=== PATIENT | male | born 1965 | race Caucasian/White ===

== ENCOUNTER 2023-05-04 12:05 | Inpatient (IN) ==
--- NOTE | 2023-05-04 12:52 | Emergency Department Note ---
History of Present Illness General Chief complaint: Leg Injury/Pain Stated complaint: LOWER LEFT LEG PAIN, REF BY DOC Time Seen by Provider: 05/04/23 12:28 Source: patient, RN notes reviewed and old records reviewed (I have reviewed x- ray results and notes from a [facility] urgent care visits on 04-05-2023) Mode of arrival: ambulatory Limitations: no limitations History of Present Illness Maximum Pain Intensity: 7 This patient was sent over from [facility] due to weight loss. He hurt his leg in the fall and said it was not too bad until March increasing pain he was seen at [facility] on April 05 had x-rays of his pelvis hip back and chest that were negative. He did recently receive referrals to cardiology GI and orthopedics he has yet to be able to get in. He has been losing weight since February he went from 1 50-1 39-1 34. He also estimates he was heavier than that in the fall and says he usually runs about 165 he thinks. He has not been taking much for pain except for Tylenol maximum 2 every 8-10 hours. He says everything he eats he throws up the last 1 to 2 weeks was able hold on chicken broth at 1 point. No abdominal pain no chest pain or shortness of breath no fever no blood or melena stool. He feels like he does have some incontinence of his urine for the last week or so at night. He was seen at [facility] Home Medications Medication Instructions Recorded Confirmed Type acetaminophen 500 mg tablet 500 mg PO Q6H PRN Pain (Scale 05/04/23 05/04/23 History Score 1-3) Allergies Allergy/AdvReac Type Severity Reaction Status Date / Time No Known Allergies Allergy Unverified 05/04/23 14:00 Past Med/Surg History Medical History (Updated 05/04/23 @ 16:18 by Mark Chopar MD) Lumbar back pain Cachectic Unintentional weight loss BHAVIN (acute kidney injury) Metabolic acidosis No pertinent past medical history Surgical History (Updated 05/04/23 @ 14:49 by HUY Doan) No pertinent past surgical history Social History (Updated 05/04/23 @ 14:49 by HUY Doan) Smoking Status: Never smoker Second Hand Exposure: No; Do You Dip or Chew Tobacco: No; Hx Alcohol Use: No Hx Substance Use: No Feels Safe at Home: Yes Immunizations: Past medical history denies significant past medical problems. Specifically denies diabetes, back pain, blood thinner use Social history he does not smoke drink or use drugs or marijuana Review of Systems A total of 10 systems reviewed and were otherwise negative Physical Exam Vital Signs Vital Signs - 24 hr 05/04/23 12:14 Temperature 35.3 C L Temperature Source Temporal Artery Scan Pulse Rate 119 H Respiratory Rate 16 Respiratory Effort / Characteristics Non-Labored Spontaneous Respiratory Depth Normal Blood Pressure 120/71 Blood Pressure Mean 87 Pulse Oximetry 99 Oxygen Delivery Method Room Air Sepsis New/Unexplained Change in Mental Status No Sepsis Action Taken by Nursing No Action Required General: Well developed well nourished somewhat cachectic middle-age male who in no acute distress, breathing comfortably on room air. Normal speech HEENT: Normal cephalic atraumatic. Pupils are equal round and reactive to light. Extraocular movements are intact. Oropharynx is pink with moist mucous membranes. No swelling of the mouth lips or tongue. Neck: Supple with a midline trachea. No meningeal signs or stiffness, no JVD or bruits. No Stridor. Chest: Clear to auscultation bilaterally. No wheezes or rhonchi. No increased work of breathing. Heart: He is tachycardic but has regular rate and rhythm to hear 2 out of 6 systolic murmur. Abdomen: Soft nontender, nondistended without rebound guarding or rigidity. Extremities: No cyanosis clubbing or edema. No calf tenderness or assymetry. No redness or warmth. Normal distal pulses no calf tenderness or asymmetry. Spine/Back. Non tender to palpation. No CVA tenderness Skin: Good turgor without rashes. Neurologic exam: Cranial nerves two through 12 are intact. Motor and sensation are intact and symmetrical throughout. He walks with a cane. Course Administered Medications Sodium Bicarbonate 150 meq/ (Dextrose) 1,150 mls @ 290 mls/hr IV .[id number] STA Stop: 05/04/23 17:37 Last Admin: 05/04/23 14:39 Dose: 290 mls/hr Documented By: OLEGARIO Dextrose/Sodium Chloride (D5w And 1/2nss) 1,000 mls @ 80 mls/hr IV .[id number] ALAN Stop: 05/05/23 16:29 Last Admin: 05/04/23 16:11 Dose: 80 mls/hr Documented By: OLEGARIO Sodium Zirconium Cyclosilicate (Sodium Zirconium Cyclosilicate 10 Gm Packet) 10 gm PO TID ALAN Stop: 05/06/23 09:01 Last Admin: 05/04/23 15:00 Dose: 10 gm Documented By: OLEGARIO Discontinued Medications Calcium Gluconate (Calcium Gluconate 1000 Mg/60 Ml Nss) Confirm Administered Dose 1,000 mg IV .STK-MED ONE Stop: 05/04/23 14:04 Last Admin: 05/04/23 14:12 Dose: Not Given Documented By: OLEGARIO Sodium Chloride (Nss) 1,000 mls @ 999 mls/hr IV .Q1H1M ONE Stop: 05/04/23 13:43 Last Infusion: 05/04/23 14:05 Dose: Infused Documented By: Admin: 05/04/23 13:04 Dose: 999 mls/hr Documented By: LIDIA Sodium Chloride (Nss) 1,000 mls @ 999 mls/hr IV .Q1H1M ONE Stop: 05/04/23 13:45 Last Admin: 05/04/23 14:00 Dose: 999 mls/hr Documented By: OLEGARIO Calcium Gluconate 1,000 mg/ (Sodium Chloride) 60 mls @ 240 mls/hr IV NOW ONE Stop: 05/04/23 13:49 Last Infusion: 05/04/23 14:28 Dose: Infused Documented By: Admin: 05/04/23 14:13 Dose: 240 mls/hr Documented By: OLEGARIO Miscellaneous (Stat Iv/Im) 1 each N/A NOW STA Stop: 05/04/23 13:36 Last Admin: 05/04/23 16:04 Dose: Not Given Documented By: OLEGARIO Critical Care Time Critical Care Time: Yes Total Critical Care Time: 55 Due to the patient's significantly abnormal labs with hyperkalemia as well as renal failure, need for multiple consultations multiple IV medications to treat emergent hyperkalemia and tachycardia, frequent reassessment and evaluation,I have personally spent greater than 55 minutes of critical care time in the direct management of this patient. This includes bedside care, interpretation of diagnostic studies, and testing, discussion with consultants, patient, and family members, and other required patient management activities. This 55 minutes is in excess of all separately billable procedures. Medical Decision Making Differential Diagnosis Orthopedic disease, dehydration, intra-abdominal process, malignancy, endocrinologic process, infection, anemia, DVT/PE Medical Records Attestation: I reviewed the patient's medical records. Home Medications Current Medication List: was personally reviewed by me Laboratory Data Attestation: I reviewed the patient's lab results. 05/04/23 12:25 05/04/23 12:25 Lab Results 05/04/23 05/04/23 05/04/23 Range/Units 12:25 12:27 12:40 WBC 17.76 H (4.8-10.8) K/ul RBC 3.93 L (4.70-6.10) M/uL Hgb 11.5 L (14.0-18.0) g/dl Hct 36.6 L (42.0-52.0) % MCV 93.1 (80.0-100.0) fL MCH 29.3 (25.0-34.0) pg MCHC 31.4 L (32.0-36.0) g/dL RDW Std Deviation 50.4 H (36.4-46.3) fL RDW Coeff of [place] 14.7 H (11.5-14.5) % Plt Count 528 H (130-400) K/uL MPV 8.8 L (9.4-12.4) fL Immature Gran % (Auto) 1.2 % Neut % (Auto) 87.8 % Lymph % (Auto) 4.5 % [place] % (Auto) 6.0 % Eos % (Auto) 0.1 % Baso % (Auto) 0.4 % Neut # (Auto) 15.59 H (1.40-6.50) K/uL Lymph # (Auto) 0.80 L (1.20-3.40) K/uL [place] # (Auto) 1.07 H (0.11-0.59) K/uL Eos # (Auto) 0.02 (0.00-0.50) K/uL Baso # (Auto) 0.07 (0.00-0.20) K/uL Immature Gran # (Auto) 0.21 H (0.01-0.20) K/uL D-Dimer 03812 H* (0-500) ug/L FEU VBG pH (7.36-7.41) VBG pCO2 (38-50) mmHg VBG pO2 mmHg VBG HCO3 mmol/L VBG O2 Saturation % VBG Base Excess mEq/L Sodium 134 L (136-145) mmol/L Potassium 6.9 H* (3.5-5.1) mmol/L Chloride 104 (98-107) mmol/L Carbon Dioxide 13 L (21-32) mmol/L Anion Gap 17 H (3-11) BUN 100 H (6-23) mg/dl Creatinine 7.03 H* (0.6-1.4) mg/dl Est Cr Clr Drug Dosing 8.0 ml/min Est GFR ( Amer) 9.0 ml/min Est GFR (Non-Af Amer) 7.8 ml/min BUN/Creatinine Ratio 14.2 (10-20) Glucose 111 H (70-99(Fasting)) mg/dl Estimat Average Glucose mg/dl Hemoglobin A1c (4.5-5.6) % Lactate (0.4-2.0) mmol/L Uric Acid 11.6 H (2.6-7.2) mg/dl Calcium 9.4 (8.6-10.3) mg/dl Phosphorus 4.3 (2.5-4.9) mg/dl Total Bilirubin 0.4 (0.2-1.0) mg/dl AST 12 L (13-39) U/L ALT 8 (7-52) U/L Alkaline Phosphatase 770 H (34-104) U/L Troponin I High Sens 27.2 H (0-20) pg/ml Total Protein 7.9 (6.0-8.3) gm/dl Albumin 4.1 (3.4-5.0) gm/dl Globulin 3.8 (2.5-4.0) gm/dl Albumin/Globulin Ratio 1.1 (0.9-2) Lipase 52 (11-82) U/L TSH 3.503 (0.300-4.500) uIu/ml Urine Color Urine Appearance (Clear) Urine pH (4.5-7.5) Ur Specific [place] (1.000-1.030) Urine Protein (Negative) Urine Glucose (UA) (Negative) Urine Ketones (Negative) Urine Blood (Negative) Urine Nitrite (Negative) Urine Bilirubin (Negative) Urine Urobilinogen (Negative) Ur Leukocyte Esterase (Negative) Urine WBC (Auto) (0-5) /hpf Urine RBC (Auto) (0-4) /hpf U Hyaline Cast (Auto) (0-5) /lpf U Epithel Cells (Auto) (0-5) /lpf Urine Bacteria (Auto) (Negative) Urine Osmolality (500-800) mOsm/kg 05/04/23 05/04/23 05/04/23 Range/Units 12:49 14:17 14:41 WBC (4.8-10.8) K/ul RBC (4.70-6.10) M/uL Hgb (14.0-18.0) g/dl Hct (42.0-52.0) % MCV (80.0-100.0) fL MCH (25.0-34.0) pg MCHC (32.0-36.0) g/dL RDW Std Deviation (36.4-46.3) fL RDW Coeff of [place] (11.5-14.5) % Plt Count (130-400) K/uL MPV (9.4-12.4) fL Immature Gran % (Auto) % Neut % (Auto) % Lymph % (Auto) % [place] % (Auto) % Eos % (Auto) % Baso % (Auto) % Neut # (Auto) (1.40-6.50) K/uL Lymph # (Auto) (1.20-3.40) K/uL [place] # (Auto) (0.11-0.59) K/uL Eos # (Auto) (0.00-0.50) K/uL Baso # (Auto) (0.00-0.20) K/uL Immature Gran # (Auto) (0.01-0.20) K/uL D-Dimer (0-500) ug/L FEU VBG pH (7.36-7.41) VBG pCO2 (38-50) mmHg VBG pO2 mmHg VBG HCO3 mmol/L VBG O2 Saturation % VBG Base Excess mEq/L Sodium (136-145) mmol/L Potassium (3.5-5.1) mmol/L Chloride (98-107) mmol/L Carbon Dioxide (21-32) mmol/L Anion Gap (3-11) BUN (6-23) mg/dl Creatinine (0.6-1.4) mg/dl Est Cr Clr Drug Dosing ml/min Est GFR ( Amer) ml/min Est GFR (Non-Af Amer) ml/min BUN/Creatinine Ratio (10-20) Glucose (70-99(Fasting)) mg/dl Estimat Average Glucose mg/dl Hemoglobin A1c (4.5-5.6) % Lactate (0.4-2.0) mmol/L Uric Acid (2.6-7.2) mg/dl Calcium (8.6-10.3) mg/dl Phosphorus (2.5-4.9) mg/dl Total Bilirubin (0.2-1.0) mg/dl AST (13-39) U/L ALT (7-52) U/L Alkaline Phosphatase (34-104) U/L Troponin I High Sens 33.8 H (0-20) pg/ml Total Protein (6.0-8.3) gm/dl Albumin (3.4-5.0) gm/dl Globulin (2.5-4.0) gm/dl Albumin/Globulin Ratio (0.9-2) Lipase (11-82) U/L TSH (0.300-4.500) uIu/ml Urine Color Yellow Urine Appearance Clear (Clear) Urine pH 5.0 (4.5-7.5) Ur Specific [place] 1.016 (1.000-1.030) Urine Protein Negative (Negative) Urine Glucose (UA) Negative (Negative) Urine Ketones Trace H (Negative) Urine Blood 3+ H (Negative) Urine Nitrite Negative (Negative) Urine Bilirubin Negative (Negative) Urine Urobilinogen Negative (Negative) Ur Leukocyte Esterase Trace H (Negative) Urine WBC (Auto) 5-10 H (0-5) /hpf Urine RBC (Auto) 10-30 H (0-4) /hpf U Hyaline Cast (Auto) 0 (0-5) /lpf U Epithel Cells (Auto) 5-10 H (0-5) /lpf Urine Bacteria (Auto) Negative (Negative) Urine Osmolality 389 L (500-800) mOsm/kg 05/04/23 Range/Units 15:50 WBC (4.8-10.8) K/ul RBC (4.70-6.10) M/uL Hgb (14.0-18.0) g/dl Hct (42.0-52.0) % MCV (80.0-100.0) fL MCH (25.0-34.0) pg MCHC (32.0-36.0) g/dL RDW Std Deviation (36.4-46.3) fL RDW Coeff of [place] (11.5-14.5) % Plt Count (130-400) K/uL MPV (9.4-12.4) fL Immature Gran % (Auto) % Neut % (Auto) % Lymph % (Auto) % [place] % (Auto) % Eos % (Auto) % Baso % (Auto) % Neut # (Auto) (1.40-6.50) K/uL Lymph # (Auto) (1.20-3.40) K/uL [place] # (Auto) (0.11-0.59) K/uL Eos # (Auto) (0.00-0.50) K/uL Baso # (Auto) (0.00-0.20) K/uL Immature Gran # (Auto) (0.01-0.20) K/uL D-Dimer (0-500) ug/L FEU VBG pH 7.29 L (7.36-7.41) VBG pCO2 27 L (38-50) mmHg VBG pO2 37 mmHg VBG HCO3 13 mmol/L VBG O2 Saturation 68.2 % VBG Base Excess -12.3 mEq/L Sodium (136-145) mmol/L Potassium (3.5-5.1) mmol/L Chloride (98-107) mmol/L Carbon Dioxide (21-32) mmol/L Anion Gap (3-11) BUN (6-23) mg/dl Creatinine (0.6-1.4) mg/dl Est Cr Clr Drug Dosing ml/min Est GFR ( Amer) ml/min Est GFR (Non-Af Amer) ml/min BUN/Creatinine Ratio (10-20) Glucose (70-99(Fasting)) mg/dl Estimat Average Glucose 117 mg/dl Hemoglobin A1c 5.7 H (4.5-5.6) % Lactate 0.8 (0.4-2.0) mmol/L Uric Acid (2.6-7.2) mg/dl Calcium (8.6-10.3) mg/dl Phosphorus (2.5-4.9) mg/dl Total Bilirubin (0.2-1.0) mg/dl AST (13-39) U/L ALT (7-52) U/L Alkaline Phosphatase (34-104) U/L Troponin I High Sens (0-20) pg/ml Total Protein (6.0-8.3) gm/dl Albumin (3.4-5.0) gm/dl Globulin (2.5-4.0) gm/dl Albumin/Globulin Ratio (0.9-2) Lipase (11-82) U/L TSH (0.300-4.500) uIu/ml Urine Color Urine Appearance (Clear) Urine pH (4.5-7.5) Ur Specific [place] (1.000-1.030) Urine Protein (Negative) Urine Glucose (UA) (Negative) Urine Ketones (Negative) Urine Blood (Negative) Urine Nitrite (Negative) Urine Bilirubin (Negative) Urine Urobilinogen (Negative) Ur Leukocyte Esterase (Negative) Urine WBC (Auto) (0-5) /hpf Urine RBC (Auto) (0-4) /hpf U Hyaline Cast (Auto) (0-5) /lpf U Epithel Cells (Auto) (0-5) /lpf Urine Bacteria (Auto) (Negative) Urine Osmolality (500-800) mOsm/kg Imaging Data Attestation: I personally reviewed and interpreted this imaging study as follows: My Impression: Chest x-raythat acute infiltrate, failure, pneumothorax seen CT abdomen and pelvis. There is a large dilated bladder and there may be some mild hydro nephrosis Radiologist's Impression: Chest X-Ray 05/04/23 12:43 XR chest 1V portable CLINICAL HISTORY: Cough. COMPARISON STUDY: No previous studies for comparison. FINDINGS: Lung volumes are normal. Lungs are clear. There is no pneumothorax or pleural effusion. Moderate cardiomegaly. Mediastinal contours are normal. There is no evidence for pulmonary edema. IMPRESSION: No acute cardiopulmonary findings. Cardiomegaly. ACT 112: Negative or not required by law. Electronically signed by: Fred Silverio M.D. 05/04/2023 2:09 PM Abdomen/Pelvis CT 05/04/23 13:47 CT OF THE ABDOMEN AND PELVIS WITHOUT CONTRAST CLINICAL HISTORY: Weight loss. Renal failure. COMPARISON STUDY: None. TECHNIQUE: Axial images of the abdomen and pelvis were obtained without IV contrast. Images were reviewed in the axial, sagittal, and coronal planes. Automated exposure control was utilized for the study. A dose lowering technique was utilized adhering to the principles of ALARA. FINDINGS: Please note that the chest and lumbar spine CTs will be reported separately. No pneumatosis, free air or portal venous gas is present. Evaluation of the abdomen and pelvis is suboptimal on this unenhanced exam. There is mild bilateral hydroureteronephrosis, likely related to bladder distention. There is mild bilateral perinephric and periureteral stranding with possible urothelial thickening of the ureters. A few punctate right renal calculi are present. There are no ureteral calculi. Unenhanced images of the liver, spleen, adrenal glands and pancreas are unremarkable. There are multiple mildly enlarged partially calcified abdominal and pelvic lymph nodes. Index left external iliac lymph node on image 247 of 325 measures 3.6 x 1.6 cm. A right common iliac node on image 166 measures 2.3 x 1.5 cm. A left perirectal node measures 1.6 x 1.1 cm. Prostate measures 4.5 cm in transverse dimension. Numerous sclerotic lesions are identified within the visualized skeletal structures. Several of these lesions are expansile. There is mild loss of height of the L5 vertebral body suggestive of a pathologic fracture. IMPRESSION: 1. Mild bilateral hydroureteronephrosis, likely related to bladder distention. Associated perinephric and periureteral stranding with possible urothelial thickening. Findings could be correlated with urinalysis. 2. Numerous sclerotic skeletal lesions, several of which are expansile. This is highly suggestive of metastatic disease and metastatic prostate cancer is a primary consideration. Findings could be correlated with PSA level. 3. Multiple mildly enlarged partially calcified abdominal and pelvic lymph nodes. This adenopathy is nonspecific and could reflect allie metastases however calcified allie metastases are uncommon in prostate cancer. A second primary cannot be excluded. Partially treated disease is within the differential as well. ACT 112: Positive. There are findings on this exam that require communication between the performing entity and the patient following Patient Test Result Information Act ([place] Act 112) guidelines. Electronically signed by: Fred Silverio M.D. 05/04/2023 3:[address] 05/04/23 13:47 CT chest diagnostic wo con CT DOSE: HISTORY: weight loss, renal failure TECHNIQUE: Multiaxial CT images of the chest were performed without contrast. A dose lowering technique was utilized adhering to the principles of ALARA. COMPARISON: None. FINDINGS: Multiple scattered osteoblastic metastatic foci seen throughout the visualized osseous structures of the chest. This is most pronounced within the thoracic and visualized lumbar spine. There is a nondisplaced pathologic fracture at the T1 spinous process. Please refer to the same day abdomen and pelvis CT for further evaluation of the bilateral hydronephrosis. The thyroid gland is unremarkable. Normal esophagus. The heart is normal in size. Trace pericardial effusion. No pleural effusions. Aortic valve calcifications are noted. The ascending thoracic aorta measures 5.4 cm in diameter. No mediastinal or hilar lymphadenopathy. No pneumothorax. The central airways are patent. Mild interstitial/interlobular septal thickening, right greater than left. There are few subcentimeter groundglass irregular densities and a few subcentimeter nodular densities within the right lung. These subcentimeter nodules measure up to 5 mm on image 108 the right lower lobe. This is nonspecific but could be due to mild asymmetric pulmonary edema or an atypical pneumonitis. IMPRESSION: 1. Multiple scattered osteoblastic metastatic foci seen throughout the visualized osseous structures of the chest. 2. There is a nondisplaced pathologic fracture at the T1 spinous process. 3. Mild interstitial/interlobular septal thickening, right greater than left. There are few subcentimeter groundglass irregular densities and a few subcentimeter nodular densities within the right lung. This is nonspecific but could be due to mild asymmetric pulmonary edema or an atypical pneumonitis. [address] follow-up recommended to ensure resolution/stability. 4. Aneurysmal dilatation of the ascending thoracic aorta measuring up to 5.4 cm in diameter. ACT 112: Negative or not required by law. Electronically signed by: Lior Davila M.D. 05/04/2023 3:[address] 05/04/23 15:05 CT SCAN OF THE LUMBAR SPINE WITHOUT IV CONTRAST CLINICAL HISTORY: Low back pain. COMPARISON STUDY: No priors. TECHNIQUE: CT scan of the lumbar spine is performed from the lower thoracic spine to the sacrum. Images are reviewed in the axial, sagittal, and coronal planes. IV contrast was not administered for this examination. A dose lowering technique was utilized adhering to the principles of ALARA. FINDINGS: The skeletal structures are well mineralized. There is evidence of extensive/diffuse multifocal osteoblastic metastatic disease. This is seen at all lumbar levels and throughout the visualized bony pelvis. There is a mild compression deformity of L5 which is likely pathologic. Fragments are retropulsed by up to 5 mm. This does not contribute to significant central canal stenosis. Vertebral body heights is otherwise maintained throughout the lumbar spine. Alignment is preserved. There is straightening of the lumbar lordosis. Anterior and lateral marginal osteophytes are seen throughout. The transverse and spinous processes appear intact. There is no spondylolysis. There is mild multilevel degenerative disc space narrowing, greatest at L3-L4. There is no CT evidence of large disc herniation or high-grade central canal stenosis. Degenerative change and partial fusion is seen in the sacroiliac joints. There is a pathologic fracture of the left sacral ala. There is mild to moderate bilateral hydroureteronephrosis. The ureters are dilated to the level of the markedly distended bladder. There are pathologically enlarged and calcified retroperitoneal and iliac chain lymph nodes. A sales representative health insurance right iliac chain node on image #68 measures 2.3 x 1.8 cm. The paraspinous soft tissues are normal as imaged. IMPRESSION: 1. Findings are consistent with extensive/diffuse osteoblastic metastatic disease. The appearance is most suggestive of metastatic prostate cancer. Correlate with the oncological history. 2. There is a pathologic compression fracture of L5 with mild loss of height and mildly retropulsed fragments. This does not cause significant central canal stenosis. 3. No additional fracture is seen involving the lumbar spine. 4. There is a pathologic fracture of the left sacral ala. 5. There are pathologically enlarged and calcified retroperitoneal and iliac chain lymph nodes. This likely represents metastatic disease. 6. Markedly distended bladder contributing to [id number] bilateral hydroureteronephrosis. ACT 112: Negative or not required by law. Electronically signed by: Keven Bernal M.D. 05/04/2023 3:47 PM ECG Data Attestation: I personally reviewed and interpreted this ECG as follows: Indication: + nausea and + vomiting Rate (beats per minute): 100 Rhythm: + sinus tachycardia ECG Intervals/blocks: + Normal QRS, + Normal QT and + Normal [place] ECG [place]: + Normal ECG Findings: + Peaked T waves Comparison ECG Date: no prior available MDM Narrative This patient comes in as described above. I did see him in triage. I am concerned as he is at ongoing weight loss. He is lost over 25 pounds since beginning of the year. He looks cachectic he has had vomiting with after eating is no abdominal pain. He said some chronic leg pain which is not any worse or different and has no neurologic deficits. An extensive workup was done. IV access was established multiple blood testing was obtained order urinalysis and culture and chest x-ray. CAT scans will be obtained as well based on his blood test results as well. I did order IV normal saline bolus. His white count came back elevated at 17. His potassium was significant elevated at 6.9 with a creatinine of 7 and a BUN of 100. I suspect there is a prerenal component but with the creatinine being that high I am concerned about another component as well. I did discuss case with Dr. Lewis, state tested nursing assistant on-call. He did recommend treating for his hyperkalemia but did not feel he would likely need acute dialysis. EKG shows peaked T waves. I did order IV calcium gluconate as well as IV bicarbonate drip. He was also given the potassium binder. We did establish a second IV. CAT scans show what appears to be metastatic prostate disease to the bones of the abdomen. He also has enlarged bladder. I talked him about putting Grimm catheter in which she was initially resistant to. I did discuss the case with Dr. Kumar the on-call urologist he agrees that the patient is a Grimm catheter and I went back and told the patient that his and he agrees I have discussed the case with the on-call [facility] hospitalist, and the patient will be admitted/observed Continuous cardiac monitoring: Orders placed in EMR for continuous cardiac monitoring: Upon evaluation patient noted to be sinus tachycardia with a rate of 105 Impression & Plan Acute renal failure, Acute hyperkalemia, Back pain, Acute dehydration, Metastatic cancer Discharge Plan Visit Data Chief Complaint: Leg Injury/Pain Stated Complaint: LOWER LEFT LEG PAIN, REF BY DOC ED Provider: Mark Chopra Discharge Problem: Acute renal failure, Acute hyperkalemia, Back pain, Acute dehydration, Metastatic cancer Forms Stand Alone Forms: [place] Prescriptions Prescriptions: No Action acetaminophen [Tylenol Ex Str Rapid Release] 500 mg Tablet 500 mg PO Q6H PRN (Reason: Pain (Scale Score 1-3)) Referrals Referrals: PCP,NO [Primary Care Provider] - Discharge Problem: Acute renal failure Qualifiers: Acute renal failure type: unspecified Qualified Code(s): N17.9 - Acute kidney failure, unspecified Back pain Qualifiers: Back pain location: low back pain Chronicity: acute Back pain laterality: b ilateral Sciatica presence: without sciatica Qualified Code(s): M54.50 - Low back pain, unspecified Metastatic cancer Qualifiers: Area of secondary neoplastic involvement: unspecified site Qualified Code(s): C 79.9 - Secondary malignant neoplasm of unspecified site
[2023-05-04 12:57] LABS: Basophils # (auto) 0.07 K/uL (0.00-0.20); Basophils % (auto) 0.4 %; Eosinophils # (auto) 0.02 K/uL (0.00-0.50); Eosinophils % (auto) 0.1 %; Hematocrit (blood only) 36.6 % (42.0-52.0); Hemoglobin 11.5 g/dl (14.0-18.0); Immature Granulocytes # (auto) 0.21 K/uL (0.01-0.20); Immature Granulocytes % (auto) 1.2 %; Lymphocytes % (auto) 4.5 %; Mean Corpuscular Hemoglobin 29.3 pg (25.0-34.0); Mean Corpuscular Hgb Conc 31.4 g/dL (32.0-36.0); Mean Corpuscular Volume 93.1 fL (80.0-100.0); Mean Platelet Volume 8.8 fL (9.4-12.4); Monocytes # (auto) 1.07 K/uL (0.11-0.59); Neutrophils # (auto) 15.59 K/uL (1.40-6.50); Neutrophils % (auto) 87.8 %; Platelet Count 528 K/uL (130-400); RDW Coefficient of Variation 14.7 % (11.5-14.5); RDW Standard Deviation 50.4 fL (36.4-46.3); Red Blood Count 3.93 M/uL (4.70-6.10); White Blood Count 17.76 K/ul (4.8-10.8)
[2023-05-04] MEDS: SODIUM CHLORIDE 0.9% 1,000 ML IV ONE ×2 (13:04→14:00)
[2023-05-04 13:21] LABS: Appearance Urine Clear (Clear); Bacteria Urine Automated Negative (Negative); Bilirubin Urine Negative (Negative); Blood Urine 3+ (Negative); Cast Urine Automated 0 /lpf (0-5); Color Urine Yellow; Glucose Urine UA Negative (Negative); Ketones Urine Trace (Negative); Leukocyte Esterase Urine Trace (Negative); Nitrite Urine Negative (Negative); Protein Urine Negative (Negative); Specific Gravity Urine 1.016 (1.000-1.030); Urobilinogen Urine Negative (Negative)
[2023-05-04 13:28] LABS: Albumin Globulin Ratio 1.1 (0.9-2); Albumin Level 4.1 gm/dl (3.4-5.0); BUN Creatinine Ratio 14.2 (10-20); Bilirubin,Total 0.4 mg/dl (0.2-1.0); Calcium 9.4 mg/dl (8.6-10.3); Est GFR (Non-African American) 7.8 ml/min; Globulin 3.8 gm/dl (2.5-4.0); Potassium 6.9 mmol/L (3.5-5.1); Thyroid Stimulating Hormone 3.503 uIu/ml (0.300-4.500); Total Protein 7.9 gm/dl (6.0-8.3); Troponin I High Sensitivity 27.2 pg/ml (0-20)
[2023-05-04] MEDS ORDERED: ALUMINUM/MAGNESIUM SUSP 30 ML UDC PO PRN (14:07)
[2023-05-04] MEDS ORDERED: MAGNESIUM HYDROXIDE SUSP 30 ML UDC PO PRN (14:07)
[2023-05-04 14:08] LABS: D Dimer 15370 ug/L FEU (0-500)
--- NOTE | 2023-05-04 14:11 | XRay Report ---
XR chest 1V portable CLINICAL HISTORY: Cough. COMPARISON STUDY: No previous studies for comparison. FINDINGS: Lung volumes are normal. Lungs are clear. There is no pneumothorax or pleural effusion. Mod erate cardiomegaly. Mediastinal contours are normal. There is no evidence for pulmonary edema. IMPRESSION: No acute cardiopulmonary findings. Cardiomegaly. ACT 112: Negative or not required by law. Electronically signed by: Fred Silverio M.D. 05/04/2023 2:09 PM
[2023-05-04] MEDS: CALCIUM GLUCONATE 1000 MG/60 ML NSS IV ONE (14:12)
[2023-05-04] MEDS: CALCIUM GLUCONATE 10% 1,000 MG in SODIUM CHLOR 0.9% MINI-B 50 ML IV ONE (14:13)
--- NOTE | 2023-05-04 14:25 | History & Physical Report ---
Date of Service May 04, 2023 Assessment & Plan (1) Metabolic acidosis: (2) BHAVIN (acute kidney injury): (3) Unintentional weight loss: (4) Cachectic: (5) Lumbar back pain: Plan Mr. Marie is a 57 year old that presented to the ED today from [facility] for management of his left leg pain and weight loss. He has been having left leg pain since Thanksgiving where he fell in a hole at work. He has noticed a 35 pound weight loss and decreased appetite over the past few months. He is uninsured and was recently seen by [facility] for a minimal work up. He has has some radiologic imaging in March 2023; degenerative spondylosis with disc space narrowing at multiple levels; most severe L4-L5 L5-S1. He reports intermittent bladder loss. He has had a decreased appetite that has been worsening over the past few weeks. Leukocytosis 70.76, hyperkalemic 6.9, creatinine 7.03, anion gap 17, alk phos 770 with otherwise normal LFTs, D-dimer 15,000 370, troponin 27.2 increased to 33.8; suspect ischemic demand rather than ACS. Lactate pending. Doesnt have protein gap. Denies tobacco, alcohol, recreational drug use. Patient mother report uterine cancer; sister history NH Lymphoma. He denies fevers, chills, chest pain, palpitations, SOB, does report nausea, (-) vomiting or diarrhea. See Dr. Fernandez addendum for physical examination findings. Patient will be admitted for metabolic acidosis and acute kidney failure with intractable back pain and microscopic hematuria. Will obtain further imaging including abd/pelvis CT, lumbar CT without contrast, involve Nephrology. Have high suspicion of cancer; other differential includes tumor lysis syndrome, plasma cell disorder. Acute Renal Failure Hyperkalemia: Anion gap Metabolic acidosis: Acute Unclear etiology Leukocytosis WBC 17.76; will hold on any treatment at the moment pending scans elevated Alk Phos 770 Will obtain Lactate, check Vitamin D Serum BUN 100, Creatinine 7.03 Serum K+ 6.9; Lokelma ordered per Nephro recommendation Insulin 10 Units ordered once D5 1/2 NS @ 80ml/hour ordered x2 bags; will reassess Q4 BMP ordered Avoid nephrotoxic agents Nephro consult placed and discussed Elevated D-Dimer: Acute D-Dimer: 15.370 Suspect related to disease process Will obtain bilateral LE Doppler scans Intractable Back pain with left radiculopathy: Acute lumbar xray as opt suggests spondylosis without fracture Will obtain lumbar CT without contrast Dilaudid 0.2 Q4 PRN to avoid opioid toxicity Ortho consult placed Microscopic hematuria: Acute Blood noted on UA No protein on UA Will order Interfixation and [place] lambda chain per discussion with Nephro Patient declines castanon at the moment Consider bladder imaging based on resolution of Bhavin Murmur: Acute ST on monitor Elevated Trop 27.2--> 33.8, likely ischemic demand; but will obtain ECHO since audible murmur; trend trop Will obtain ECHO and determine next steps Anxiety: Acute Likely situational PRN Ativan ordered Unintentional weight loss: Acute Was 178 pounds; before , was losing weight could be from a persistent uric acid build up; will monitor labs consider nutrition consultation pending course progression Disposition: PCP: None Code Status: Full code VTE Prophylaxis: Heparin SQ I spent a total of 87 minutes coordinating, documenting, and providing care for this patient excluding time spent in the performance of separately billed services. All of the aforementioned completed while collaborating with the assigned attending physician for a full treatment plan. Please see their addendum for further details. History of Present Illness Chief Complaint: bhavin Primary Care Provider: NO PCP Mr. Marie is a 57 year old that presented to the ED today from [facility] for management of his left leg pain and weight loss. He has been having left leg pain since where he fell in a hole at work. He has noticed a 35 pound weight loss and decreased appetite over the past few months. He is uninsured and was recently seen by [facility] for a minimal work up. He has has some radiologic imaging in March 2023; degenerative spondylosis with disc space narrowing at multiple levels; most severe L4-L5 L5-S1. He reports intermittent bladder loss. He has had a decreased appetite that has been worsening over the past few weeks. Leukocytosis 70.76, hyperkalemic 6.9, creatinine 7.03, anion gap 17, alk phos 770 with otherwise normal LFTs, D-dimer 15,000 370, troponin 27.2 increased to 33.8; suspect ischemic demand rather than ACS. Lactate pending. Doesnt have protein gap. Denies tobacco, alcohol, recreational drug use. Patient mother report uterine cancer; sister history NH Lymphoma. He denies fevers, chills, chest pain, palpitations, SOB, does report nausea, (-) vomiting or diarrhea. See Dr. Fernandez addendum for physical examination findings. Patient will be admitted for metabolic acidosis and acute kidney failure with intractable back pain and microscopic hematuria. Will obtain further imaging including abd/pelvis CT, lumbar CT without contrast, involve Nephrology. Have high suspicion of cancer; other differential includes tumor lysis syndrome, plasma cell disorder. Allergies Allergy/AdvReac Type Severity Reaction Status Date / Time No Known Allergies Allergy Unverified 05/04/23 14:00 Home Medications Medication Instructions Recorded Confirmed Type acetaminophen 500 mg tablet 500 mg PO Q6H PRN Pain (Scale 05/04/23 05/04/23 History Score 1-3) Past Med/Surg History Medical History (Updated 05/04/23 @ 14:55 by HUY Doan) Lumbar back pain Cachectic Unintentional weight loss BHAVIN (acute kidney injury) Metabolic acidosis No pertinent past medical history Surgical History (Updated 05/04/23 @ 14:49 by HUY Doan) No pertinent past surgical history Social History (Updated 05/04/23 @ 14:49 by HUY Doan) Smoking Status: Never smoker Second Hand Exposure: No; Do You Dip or Chew Tobacco: No; Hx Alcohol Use: No Hx Substance Use: No Feels Safe at Home: Yes Review of Systems Review of Systems: Neuro: (-) Falls, trauma, slurred speech HEENT: (-) FERNANDEZ, dizziness, dysphagia, visual or auditory changes CV: (-) CP, palpitations, swelling Resp: (-) SOB GI: (-) appetite changes, N/V/D, bowel changes : (-) urinary changes Skin: (-) rashes Psych: (-) anxiety, depression Physical Exam Physical Exam: Neuro: AAOx4, PERRLA, no aphagia, memory changes, CNII-XII grossly intact HEENT: head normocephalic, moist mucus membranes CV: S1/S2, (-) M/G/R, (-) edema, cap refill < 3 seconds Resp: Lungs CTA in all rubio. On RA GI: Abdomen S/NT/ND, Ax4 bowel sounds, (-) CVA tenderness Musculoskeletal: 5/5 B/L UE strength, 5/5 B/L LE strength. No gait disturbance Skin: (-) rashes , (-) erythema. Psych: euthymic mood Results & Data Results & Data Vital Signs (Past 12 Hours) Vital Signs Temp Pulse Resp BP Pulse Ox O2 Del Method 05/04/23 12:14 35.3 C L 119 H 16 120/71 99 Room Air Laboratory Results Short CBC 05/04/23 Range/Units 12:25 WBC 17.76 H (4.8-10.8) K/ul Hgb 11.5 L (14.0-18.0) g/dl Hct 36.6 L (42.0-52.0) % Plt Count 528 H (130-400) K/uL BMP 05/04/23 12:25 Sodium 134 L Potassium 6.9 H* Chloride 104 Carbon Dioxide 13 L BUN 100 H Creatinine 7.03 H* Glucose 111 H Calcium 9.4 Liver Function 05/04/23 Range/Units 12:25 Total Bilirubin 0.4 (0.2-1.0) mg/dl AST 12 L (13-39) U/L ALT 8 (7-52) U/L Alkaline Phosphatase 770 H (34-104) U/L Albumin 4.1 (3.4-5.0) gm/dl Urine 05/04/23 Range/Units 12:49 Urine Color Yellow Urine Appearance Clear (Clear) Urine pH 5.0 (4.5-7.5) Ur Specific [place] 1.016 (1.000-1.030) Urine Protein Negative (Negative) Urine Glucose (UA) Negative (Negative) Diagnostic Findings Chest X-Ray 05/04/23 12:43 XR chest 1V portable CLINICAL HISTORY: Cough. COMPARISON STUDY: No previous studies for comparison. FINDINGS: Lung volumes are normal. Lungs are clear. There is no pneumothorax or pleural effusion. Moderate cardiomegaly. Mediastinal contours are normal. There is no evidence for pulmonary edema. IMPRESSION: No acute cardiopulmonary findings. Cardiomegaly. ACT 112: Negative or not required by law. Electronically signed by: Fred Silverio M.D. 05/04/2023 2:09 PM Code Status & VTE Plan Code Status Full Code in the event of cardiac or respiratory arrest VTE Prophylaxis Plan VTE Prophylaxis will be ordered: Yes Supervising Physician Co-Signing Physician Notes I have seen and discussed the case with the collaborating advanced practitioner. I agree with the above H&P. I have reviewed and confirmed the patients medical history, the findings on physical examination, and the patients diagnosis and treatment plan with Fanny CASTRO and agree with the information documented. In short, Mr. Marie is a 57 year old gentleman with no reported history given no medical insurance who is admitted for acute renal failure and multiple electrolyte disturbances. Patient with ongoing history of intractable back pain after a "fall" of unclear circumstances (reportedly a small fall in a "hole" at work). Patient reportspain so severe he hasn't had an appetite, however his appetite further declined in the last weeks. He went to establish care at [facility] for health insurance, and they directed him to the ED. He denies chest pain, palpitations, diarrhea. Notes constipation, urinary incontinence--no clear oliguria reported. Declined castanon Family with NHL in sister, uterine ca in mother. Biological father hx unknown GENERAL APPEARANCE: AxOx4 very anxious thin male, mild distress. HEENT: NC, AT. MMM. EOMI, clear conjunctiva, oropharynx clear.poor dentition temporal wasting NECK: Supple without lymphadenopathy. no clavicular fat pad HEART: tachycardic, loud RAZA LUNGS: CTAB, moving air well. No crackles or wheezes are heard. ABDOMEN: Soft, nontender, nondistended with good bowel sounds heard. BACK: No CVAT, no obvious deformity. tenderness left buttock EXTREMITIES: Without cyanosis, clubbing or edema. strength 5/5, left calf > right marginally NEUROLOGICAL: Grossly nonfocal. Alert and oriented, moving all 4 extremities. CN not formally tested but appear grossly intact. very anxious Skin: Warm and dry without any rash. #Acute renal failure, unclear eitology #Anion gap acidosis #Uremia #Hyperkalemia #Hyponatremia -weeks of not feeling well/not eating, weeks of urinary incontinence prompting patient to start wearing briefs, denies any other localizing symptoms outside of intractable back pain -Bicarb drip for acidosis s/p ca gluconate for t wave changes -PCU/tele -BMP q 4 -Insulin/d5 for hyperK and lokelma -Nephrology on consult #Leukocytosis #thrombocytosis likely reactive Infectious work up ordered Will avoid empiric tx given nephrotoxicity with broad spectrum, low threshold to start however if warranted #Elevated DDimer -BLE doppler -Avoid nephrotoxic agents #Elevated ALP -liver enzymes stable, trend ALP, concern for ly involvement? 2/2 ARF? -Follow up imaging #Microhematuria #Urinary incontinence blood/rbs potentially related to BHAVIN; however with unintentional weight loss, the hematuria is concerning as potential source BHAVIN resolves or if imaging suggestive of bladder disorder, consider Urology #Intractable back pain with left radiculopathy -OP XR with severe DJD L spine; urinary incontinence reported, not sure if separate etiology or related CT Lumbar spine now to ensure no cauda equina (no other "red flag" symptoms at this time) #elevated troponin #Murmur #Sinus Tachycardia likely iso ARF ECHO monitor on tele Trend to peak #Severe protein calorie malnutrition -Reported 178 last summer, now 109.56lbs -Nutrition #Anxiety prn as above Rest of plan as above I spent a total of 45 minutes coordinating, documenting, and providing care for this patient excluding time spent in the performance of separately billed services. All of the aforementioned completed outside of collaborating with the assigned advanced practitioner for a full treatment plan. I have reviewed the advanced practitioner's documentation, and I agree with, and take responsibility for the plan of care
[2023-05-04] MEDS: SODIUM BICARBONATE 8.4% 150 MEQ in DEXTROSE 5% 1,000 ML IV STA (14:39)
[2023-05-04] MEDS: SODIUM ZIRCONIUM CYCLOSILICATE 10 GM PACKET PO SCH (15:00)
[2023-05-04 15:26] LABS: Phosphorus 4.3 mg/dl (2.5-4.9); Uric Acid 11.6 mg/dl (2.6-7.2)
--- NOTE | 2023-05-04 15:48 | CT Scan Report ---
CT SCAN OF THE LUMBAR SPINE WITHOUT IV CONTRAST CLINICAL HISTORY: Low back pain. COMPARISON STUDY: No priors. TECHNIQUE: CT scan of the lumbar spine is performed from the lower thoracic spine to the sacrum. Imag es are reviewed in the axial, sagittal, and coronal planes. IV contrast was not administered for this examination. A dose lowering technique was utilized adhering to the principles of ALARA. FINDINGS: The skeletal structures are well mineralized. There is evidence of extensive/diffuse multif ocal osteoblastic metastatic disease. This is seen at all lumbar levels and throughout the visualized bony pelvis. There is a mild compression deformity of L5 which is likely pathologic. Fragments are r etropulsed by up to 5 mm. This does not contribute to significant central canal stenosis. Vertebral b gem heights is otherwise maintained throughout the lumbar spine. Alignment is preserved. There is str aightening of the lumbar lordosis. Anterior and lateral marginal osteophytes are seen throughout. The transverse and spinous processes appear intact. There is no spondylolysis. There is mild multilevel degenerative disc space narrowing, greatest at L3-L4. There is no CT evidence of large disc herniatio n or high-grade central canal stenosis. Degenerative change and partial fusion is seen in the sacroil iac joints. There is a pathologic fracture of the left sacral ala. There is mild to moderate bilatera l hydroureteronephrosis. The ureters are dilated to the level of the markedly distended bladder. Ther e are pathologically enlarged and calcified retroperitoneal and iliac chain lymph nodes. A representa tive right iliac chain node on image #68 measures 2.3 x 1.8 cm. The paraspinous soft tissues are norm al as imaged. IMPRESSION: 1. Findings are consistent with extensive/diffuse osteoblastic metastatic disease. The appearance is most suggestive of metastatic prostate cancer. Correlate with the oncological history. 2. There is a pathologic compression fracture of L5 with mild loss of height and mildly retropulsed f ragments. This does not cause significant central canal stenosis. 3. No additional fracture is seen involving the lumbar spine. 4. There is a pathologic fracture of the left sacral ala. 5. There are pathologically enlarged and calcified retroperitoneal and iliac chain lymph nodes. This likely represents metastatic disease. 6. Markedly distended bladder contributing to [id number] bilateral hydroureteronephrosis. ACT 112: Negative or not required by law. Electronically signed by: Keven Bernal M.D. 05/04/2023 3:47 PM
--- NOTE | 2023-05-04 15:50 | CT Scan Report ---
CT OF THE ABDOMEN AND PELVIS WITHOUT CONTRAST CLINICAL HISTORY: Weight loss. Renal failure. COMPARISON STUDY: None. TECHNIQUE: Axial images of the abdomen and pelvis were obtained without IV contrast. Images were revi ewed in the axial, sagittal, and coronal planes. Automated exposure control was utilized for the bev dy. A dose lowering technique was utilized adhering to the principles of ALARA. FINDINGS: Please note that the chest and lumbar spine CTs will be reported separately. No pneumatosis , free air or portal venous gas is present. Evaluation of the abdomen and pelvis is suboptimal on thi s unenhanced exam. There is mild bilateral hydroureteronephrosis, likely related to bladder distentio n. There is mild bilateral perinephric and periureteral stranding with possible urothelial thickening of the ureters. A few punctate right renal calculi are present. There are no ureteral calculi. Unenh anced images of the liver, spleen, adrenal glands and pancreas are unremarkable. There are multiple m ildly enlarged partially calcified abdominal and pelvic lymph nodes. Index left external iliac lymph node on image 247 of 325 measures 3.6 x 1.6 cm. A right common iliac node on image 166 measures 2.3 x 1.5 cm. A left perirectal node measures 1.6 x 1.1 cm. Prostate measures 4.5 cm in transverse dimensi on. Numerous sclerotic lesions are identified within the visualized skeletal structures. Several of t hese lesions are expansile. There is mild loss of height of the L5 vertebral body suggestive of a pat hologic fracture. IMPRESSION: 1. Mild bilateral hydroureteronephrosis, likely related to bladder distention. Associated perinephric and periureteral stranding with possible urothelial thickening. Findings could be correlated with ur inalysis. 2. Numerous sclerotic skeletal lesions, several of which are expansile. This is highly suggestive of metastatic disease and metastatic prostate cancer is a primary consideration. Findings could be corre lated with PSA level. 3. Multiple mildly enlarged partially calcified abdominal and pelvic lymph nodes. This adenopathy is nonspecific and could reflect allie metastases however calcified allie metastases are uncommon in [place] cancer. A second primary cannot be excluded. Partially treated disease is within the differenti al as well. ACT 112: Positive. There are findings on this exam that require communication between the performing entity and the patient following Patient Test Result Information Act ([place] Act 112) guidelines. Electronically signed by: Fred Silverio M.D. 05/04/2023 3:48 PM
[2023-05-04 15:58] LABS: Base Excess VBG -12.3 mEq/L; HCO3 VBG 13 mmol/L; Oxygen Saturation VBG 68.2 %; PCO2 VBG 27 mmHg (38-50); PO2 VBG 37 mmHg; pH VBG 7.29 (7.36-7.41)
--- NOTE | 2023-05-04 15:59 | CT Scan Report ---
CT chest diagnostic wo con CT DOSE: HISTORY: weight loss, renal failure TECHNIQUE: Multiaxial CT images of the chest were performed without contrast. A dose lowering techni que was utilized adhering to the principles of ALARA. COMPARISON: None. FINDINGS: Multiple scattered osteoblastic metastatic foci seen throughout the visualized osseous stru ctures of the chest. This is most pronounced within the thoracic and visualized lumbar spine. There i s a nondisplaced pathologic fracture at the T1 spinous process. Please refer to the same day abdomen and pelvis CT for further evaluation of the bilateral hydronephrosis. The thyroid gland is unremarkab le. Normal esophagus. The heart is normal in size. Trace pericardial effusion. No pleural effusions. Aortic valve calcifications are noted. The ascending thoracic aorta measures 5.4 cm in diameter. No m ediastinal or hilar lymphadenopathy. No pneumothorax. The central airways are patent. Mild interstiti al/interlobular septal thickening, right greater than left. There are few subcentimeter groundglass i rregular densities and a few subcentimeter nodular densities within the right lung. These subcentimet er nodules measure up to 5 mm on image 108 the right lower lobe. This is nonspecific but could be due to mild asymmetric pulmonary edema or an atypical pneumonitis. IMPRESSION: 1. Multiple scattered osteoblastic metastatic foci seen throughout the visualized osseous structures of the chest. 2. There is a nondisplaced pathologic fracture at the T1 spinous process. 3. Mild interstitial/interlobular septal thickening, right greater than left. There are few subcentim eter groundglass irregular densities and a few subcentimeter nodular densities within the right lung. This is nonspecific but could be due to mild asymmetric pulmonary edema or an atypical pneumonitis. [address] follow-up recommended to ensure resolution/stability. 4. Aneurysmal dilatation of the ascending thoracic aorta measuring up to 5.4 cm in diameter. ACT 112: Negative or not required by law. Electronically signed by: Lior Davila M.D. 05/04/2023 3:57 PM
[2023-05-04] MEDS: STAT IV/IM STA (16:04)
[2023-05-04] MEDS ORDERED: LORazepam 0.5 MG in SYRINGE 0.25 ML IV PRN (16:08)
[2023-05-04 16:11] LABS: Estimated Average Glucose 117 mg/dl; Hemoglobin A1C 5.7 % (4.5-5.6)
[2023-05-04] MEDS: D5W AND 1/2NSS 1,000 ML IV SCH (16:11)
[2023-05-04] MEDS ORDERED: LORazepam 0.5 MG in SYRINGE 0.25 ML IV STA (16:17)
[2023-05-04] MEDS: LORazepam 1 MG/1 ML SYR ED Inj Use ONE (16:23)
[2023-05-04] MEDS: HYDROmorphone INJ 0.5 MG/0.5 ML SYR IV PRN (16:23)
[2023-05-04] MEDS: LORazepam 1 MG/1 ML SYR ED Inj Use IV STA (16:24)
[2023-05-04 16:31] LABS: BUN Creatinine Ratio 14.3 (10-20); Calcium 8.3 mg/dl (8.6-10.3); Creatinine Clr Calc Pharmacy 8.4 ml/min; Est GFR (African American) 9.5 ml/min; Est GFR (Non-African American) 8.2 ml/min; Potassium 6.8 mmol/L (3.5-5.1)
--- NOTE | 2023-05-04 16:40 | Communication Note ---
Date of Service: May 04, 2023 Reviewed scan: 1. Multiple scattered osteoblastic metastatic foci seen throughout the visualized osseous structures of the chest. 2. There is a nondisplaced pathologic fracture at the T1 spinous process. 3. Mild interstitial/interlobular septal thickening, right greater than left. There are few subcentimeter groundglass irregular densities and a few subcentimeter nodular densities within the right lung. This is nonspecific but could be due to mild asymmetric pulmonary edema or an atypical pneumonitis. [address] follow-up recommended to ensure resolution/stability. 4. Aneurysmal dilatation of the ascending thoracic aorta measuring up to 5.4 cm in diameter. 1. Findings are consistent with extensive/diffuse osteoblastic metastatic disease. The appearance is most suggestive of metastatic prostate cancer. Correlate with the oncological history. 2. There is a pathologic compression fracture of L5 with mild loss of height and mildly retropulsed fragments. This does not cause significant central canal stenosis. 3. No additional fracture is seen involving the lumbar spine. 4. There is a pathologic fracture of the left sacral ala. 5. There are pathologically enlarged and calcified retroperitoneal and iliac chain lymph nodes. This likely represents metastatic disease. 6. Markedly distended bladder contributing to [id number] bilateral hydroureteronephrosis Discussed in depth with patient and mother at bedside. Reports extreme anxiety. Agreeable to castanon placement. 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
[2023-05-04] MEDS: LIDOCAINE 2% JELLY 5 ML TUBE EXT ONE (16:48)
[2023-05-04 20:53] LABS: BUN Creatinine Ratio 16.9 (10-20); Calcium 8.3 mg/dl (8.6-10.3); Creatinine Clr Calc Pharmacy 16.2 ml/min; Est GFR (African American) 16.2 ml/min; Est GFR (Non-African American) 13.9 ml/min; Potassium 5.2 mmol/L (3.5-5.1)
[2023-05-04] MEDS: HEPARIN SOD 5,000 UNIT/0.5 ML VIAL SQ SCH (21:37)
[2023-05-04] MEDS: DICLOFENAC SOD 1% GEL 100 GM TUBE EXT SCH (21:38)
[2023-05-05] MEDS: MELATONIN 3 MG TAB PO PRN (00:32)
[2023-05-05] MEDS: ACETAMINOPHEN 325 MG TAB PO PRN (00:32)
--- NOTE | 2023-05-05 06:52 | Ultrasound Report ---
BILATERAL LOWER EXTREMITY VENOUS DOPPLER CLINICAL HISTORY: Lower extremity erythema. COMPARISON STUDY: No previous studies for comparison. TECHNIQUE: Sonography of the deep venous system of the bilateral lower extremities was performed. Co mpression and augmentation were evaluated. FINDINGS: The bilateral common femoral, superficial femoral and popliteal veins were compressible. A ugmentation was normal. Flow was shown within the deep calf vessels. IMPRESSION: No evidence of deep venous thrombus within the bilateral lower extremities. ACT 112: Negative or not required by law. Electronically signed by: Fred Silverio M.D. 05/05/2023 6:50 AM
[2023-05-05 07:02] LABS: Hematocrit (blood only) 27.3 % (42.0-52.0); Hemoglobin 8.8 g/dl (14.0-18.0); Mean Corpuscular Hemoglobin 29.3 pg (25.0-34.0); Mean Corpuscular Hgb Conc 32.2 g/dL (32.0-36.0); Mean Platelet Volume 8.9 fL (9.4-12.4); Platelet Count 367 K/uL (130-400); RDW Coefficient of Variation 14.7 % (11.5-14.5); White Blood Count 6.52 K/ul (4.8-10.8)
[2023-05-05 07:35] LABS: Albumin Globulin Ratio 1.1 (0.9-2); BUN Creatinine Ratio 24.1 (10-20); Bilirubin,Total 0.4 mg/dl (0.2-1.0); Calcium 8.4 mg/dl (8.6-10.3); Creatinine Clr Calc Pharmacy 39.3 ml/min; Est GFR (African American) 48.7 ml/min; Globulin 2.7 gm/dl (2.5-4.0); Magnesium 1.9 mg/dl (1.7-2.4); Phosphorus 2.9 mg/dl (2.5-4.9); Potassium 4.9 mmol/L (3.5-5.1); Total Protein 5.7 gm/dl (6.0-8.3)
--- NOTE | 2023-05-05 07:37 | Ultrasound Report ---
RENAL ULTRASOUND HISTORY: Acute kidney injury. COMPARISON: Abdomen and pelvis CT 05/04/2023. FINDINGS: Right kidney: 10.6 cm. Mild hydronephrosis. Normal corticomedullary differentiation and cortical thic kness. Urothelial thickening within the right renal pelvis/ureter. Left kidney: 11.7 cm. Mild hydronephrosis. Normal corticomedullary differentiation and cortical thick ness. Bladder: Bladder is decompressed by Grimm catheter. IMPRESSION: 1. Mild bilateral hydronephrosis again noted. 2. Urothelial thickening within the right renal pelvis/ureter. Urology consultation recommended. ACT 112: Negative or not required by law. Electronically signed by: Lior Davila M.D. 05/05/2023 7:36 AM
--- NOTE | 2023-05-05 09:22 | Consultation ---
Date of Consultation May 05, 2023 Assessment & Plan (1) Thoracic ascending aortic aneurysm: Pt with thoracic ascending AA measuring 5.4cm noted on CT chest. Pt without sx of chest pain to indicate dissection, and do not recommend repair electively until thoracic ascending AA reaches 6 cm or more. Would recommend echo to eval aortic valve. Echo was already ordered by medical team. Advised pt if normal, would recommend a 6 month surveillance echo to reeval size of taa and health of aortic valve. If echo indicates aortic regurgitation, would recommend pt be seen by CT surgery at tertiary center to eval. History of Present Illness Reason for Consultation: thoracic ascending AA Attending Physician: Lamin Barrett MD History of Present Illness 57 yo m without significant PMH d/t no medical care for many years, admitted with LLE pain and BHAVIN, seen in consultation today for thoracic ascending AA noted on imaging. Pt states no prior knowledge of this. Denies any family hx, smoking hx, cardiac hx, or HTN hx. Does admits weight loss of 35lbs and malaise over the past few months. Denies FERNANDEZ, fever, chest pain, SOB, abd pain, N/V, rest pain, claudication, ulcerations, other complaints. CT chest demonstrates 5.4cm thoracic ascending aortic aneurysm. Allergies Allergy/AdvReac Type Severity Reaction Status Date / Time No Known Allergies Allergy Unverified 05/04/23 14:00 Home Medications Medication Instructions Recorded Confirmed Type acetaminophen 500 mg tablet 500 mg PO Q6H PRN Pain (Scale 05/04/23 05/04/23 History Score 1-3) Patient History Medical History (Updated 05/06/23 @ 08:51 by García Waterman MD) Palliative care by specialist Advanced care planning/counseling discussion Weakness generalized Anxiety associated with cancer diagnosis Cancer related pain Thoracic ascending aortic aneurysm Lumbar back pain Cachectic Unintentional weight loss BHAVIN (acute kidney injury) Metabolic acidosis No pertinent past medical history Surgical History No pertinent past surgical history Social History Smoking Status: Never smoker Second Hand Exposure: No; Do You Dip or Chew Tobacco: No; Hx Alcohol Use: No Hx Substance Use: No Preferred Language: Mozambican Communication Ability: Effective Mix Maker Required: No Beliefs That Will Affect Care: None Current Living Situation: Alone Other Information That Helps Us Care for You: No Feels Safe at Home: Yes Safety Concerns: Feels Safe At This Time Assistive Devices: Cane Review of Systems Review of Systems: All systems reviewed & are unremarkable except as noted in HPI & below Physical Exam Constitutional: WD/WN, vitals as above + thin, cooperative and comfortable; not in distress ENMT: Ears: no hearing impairment Neck: trachea midline Respiratory: normal respiratory effort, lungs clear to auscultation Cardiovascular: Rate/Rhythm: regular rate and regular rhythm Vessels: normal peripheral pulses, femoral pulses present, posterior tibial pulses present, dorsalis pedis pulses present and radial pulses present Extremities: normal capillary refill Gastrointestinal (Abdomen): Inspection/Auscultation: abdomen normal to inspection and normal bowel sounds Percussion/Palpation: abdomen soft; abdomen nontender Musculoskeletal: no cyanosis or clubbing, extremities motor strength 5/5 Skin: no rashes, warm and dry Neurologic: moves all extremities and awake; no focal motor deficits and not confused Psychiatric: Orientation: alert and oriented x 3 Affect: + depressed affect and + flat affect Results & Data Vital Signs (Past 12 Hours) Vital Signs Temp Pulse Pulse Resp BP Pulse Ox O2 Del Method 05/05/23 07:50 36.7 C 97 H 18 112/50 L 99 Nasal Cannula 05/05/23 02:51 36.7 C 77 22 112/50 L 99 Nasal Cannula 05/04/23 23:32 80 05/04/23 23:00 36.8 C 88 20 115/50 L 100 Nasal Cannula O2 Flow Rate 05/05/23 07:50 2 05/05/23 02:51 05/04/23 23:32 05/04/23 23:00
[2023-05-05] MEDS: cefTRIAXone SODIUM 1,000 MG in DEXTROSE 5 % MINI-B 50 ML IV SCH (09:43)
--- NOTE | 2023-05-05 10:12 | Nephrology Consultation ---
Date of Consultation May 05, 2023 Assessment & Plan (1) Acute renal failure: (2) Acute hyperkalemia: Severe BHAVIN on presentation with Hyperkalemia and met Acidosis . However After placement of castanon 5.6 liter of urine and rapid drop of Creat from 7 to 1.7 in less than 24 hrs time. this is most consistent with Obstructive uropathy ( Bladder Outlet obstruction) as the cause of BHAVIN. Although the Imaging only showed Mild Hydronephrosis clinically he acted like more severe type. No further workup for BHAVIN needed. Continue Current ivf at 80 ml/hr. Continue Castanon. pending urology Consult. K is normal. Can d/c Lokelma now. Plan I spent 62 mins in total in management of this case. Plan discussed with primary team. Notes from vascular, orthopedics reviewed. History of Present Illness Reason for Consultation: BHAVIN and Hyperkalemia Attending Physician: Lamin Barrett MD History of Present Illness 57/M presented to the ED from [facility] ( No insurance) for management of his left leg pain and weight loss. He has been having left leg pain since after he fell in a hole at work. had 35 pound weight loss and decreased appetite over the past few months. He has had a decreased appetite that has been worsening over the past few weeks. Workup in ED : Leukocytosis 70.76, hyperkalemic 6.9, creatinine 7.03, anion gap 17, alk phos 770 with otherwise normal LFTs, D-dimer 15,000 370, troponin 27.2 increased to 33.8; suspect ischemic demand rather than ACS. Lactate pending. CT abdomen and renal US both Shows Bladder distension and Some Hydronephrosis. Possibility of Cancer with mets being worked up. Castanon placed. IN less than 24 hrs has made 5.6 liter urine and Creat is down very fast to 1.74. K is also normal after aggressive medical management. Denies tobacco, alcohol, recreational drug use. Lives alone and currently Unable to work-previously at [employer]. ROS--As detailed in HPI. Otherwise 12 Systems reviewed and negative Physical Exam Physical Exam: Neuro: AAOx4, PERRLA, HEENT: head normocephalic, moist mucus membranes CV: S1/S2, (-) M/G/R, (-) edema, Resp: Lungs CTA in all rubio. On RA GI: Abdomen S/NT/ND, Ax4 bowel sounds, (-) CVA tenderness Skin: (-) rashes , (-) erythema. Psych: euthymic mood Allergies Allergy/AdvReac Type Severity Reaction Status Date / Time No Known Allergies Allergy Unverified 05/04/23 14:00 Home Medications Medication Instructions Recorded Confirmed Type acetaminophen 500 mg tablet 500 mg PO Q6H PRN Pain (Scale 05/04/23 05/04/23 History Score 1-3) Patient History Medical History Thoracic ascending aortic aneurysm Lumbar back pain Cachectic Unintentional weight loss BHAVIN (acute kidney injury) Metabolic acidosis No pertinent past medical history Surgical History No pertinent past surgical history Social History Smoking Status: Never smoker Second Hand Exposure: No; Do You Dip or Chew Tobacco: No; Hx Alcohol Use: No Hx Substance Use: No Preferred Language: Argentine Communication Ability: Effective Coal Pulverizing Operator Required: No Beliefs That Will Affect Care: None Current Living Situation: Alone Other Information That Helps Us Care for You: No Feels Safe at Home: Yes Safety Concerns: Feels Safe At This Time Assistive Devices: Cane and Glasses Results & Data Vital Signs (Past 12 Hours) Vital Signs Temp Pulse Pulse Resp BP Pulse Ox O2 Del Method 05/05/23 07:50 36.7 C 97 H 18 112/50 L 99 Nasal Cannula 05/05/23 02:51 36.7 C 77 22 112/50 L 99 Nasal Cannula 05/04/23 23:32 80 05/04/23 23:00 36.8 C 88 20 115/50 L 100 Nasal Cannula O2 Flow Rate 05/05/23 07:50 2 05/05/23 02:51 05/04/23 23:32 05/04/23 23:00 Laboratory Results Reviewed Diagnostic Findings Reviewed (1) Acute renal failure Acute renal failure type: unspecified Qualified Code(s): N17.9 - Acute kidney failure, unspecified
--- NOTE | 2023-05-05 10:14 | Orthopedic Consultation ---
Date of Consultation May 05, 2023 Assessment & Plan (1) Lumbar back pain: Patient has a concerning L5 compression deformity. Dr. Coe and I have reviewed the films and feel that an MRI would be helpful in terms of determining if there is any significant fragment in the canal. Will go ahead and order the test. It does appear that he has metastatic disease which seems advanced. We will make further recommendations based on the study History of Present Illness Attending Physician: Lamin Barrett MD History of Present Illness Patient presented to the emergency room with multiple issues. We are consulted to address his low back and left leg pain. Per the patient he has had pain in his low back and left leg since . It is progressively been getting worse. Is made difficult for him to walk and he started using a cane. He has to drag the left leg at times. He cannot walk long distance. He also stated that he has had over 20 pound weight loss that was unintentional he is not having symptoms on the right-hand side. He states that he has intermittent back pain is not there in a constant fashion is not a sharp pain it is more of a dull ache. He denies any other numbness, tingling, or paresthesias. Allergies Allergy/AdvReac Type Severity Reaction Status Date / Time No Known Allergies Allergy Unverified 05/04/23 14:00 Home Medications Medication Instructions Recorded Confirmed Type acetaminophen 500 mg tablet 500 mg PO Q6H PRN Pain (Scale 05/04/23 05/04/23 History Score 1-3) Patient History Medical History (Updated 05/05/23 @ 09:19 by Dominique Gilmore PA-C) Thoracic ascending aortic aneurysm Lumbar back pain Cachectic Unintentional weight loss BHAVIN (acute kidney injury) Metabolic acidosis No pertinent past medical history Surgical History No pertinent past surgical history Social History Smoking Status: Never smoker Second Hand Exposure: No; Do You Dip or Chew Tobacco: No; Hx Alcohol Use: No Hx Substance Use: No Preferred Language: Persian Communication Ability: Effective Olericulture Professor Required: No Beliefs That Will Affect Care: None Current Living Situation: Alone Other Information That Helps Us Care for You: No Feels Safe at Home: Yes Safety Concerns: Feels Safe At This Time Assistive Devices: Cane and Glasses Physical Exam Physical Exam: On exam he is lying flat in bed. He answers questions appropriately. He is alert and oriented. He is nontender to palpation along the lower portion of his lumbar spine. His lower extremity motor exam reveals no focal atrophy is strength 5 out of 5 to detailed muscle testing without exception. He is nontender with logrolling of his hips. He has full range of motion of his knees. His gait was not observed. Cardiovascular exam reveals no gross abnormalities. Abdomen soft and nontender visual rubio are grossly intact Results & Data Vital Signs (Past 12 Hours) Vital Signs Temp Pulse Pulse Resp BP Pulse Ox O2 Del Method 05/05/23 07:50 36.7 C 97 H 18 112/50 L 99 Nasal Cannula 05/05/23 02:51 36.7 C 77 22 112/50 L 99 Nasal Cannula 05/04/23 23:32 80 05/04/23 23:00 36.8 C 88 20 115/50 L 100 Nasal Cannula O2 Flow Rate 05/05/23 07:50 2 05/05/23 02:51 05/04/23 23:32 05/04/23 23:[address] scan of the lumbar spine was reviewed. This reveals a compression deformity superior endplate of L5. The bone in this area has increased density which may implicate an osteoblastic lesion. I do not appreciate any large disc herniations or significant neurologic compression
--- NOTE | 2023-05-05 10:18 | Palliative Care Consultation ---
Date of Consultation May 05, 2023 Assessment & Plan (1) Cancer related pain: Pt has not used IV Dilaudid since yesterday Will begin trial of PO meds for anticipated OP use: Percocet 5/325mg tab one PO q4h prn, hold for somnolence or RR<14/min Dilaudid 0.25mg IV moved to q3h prn severe pain unrelieved by oral meds bowel regimen ordered (2) Anxiety associated with cancer diagnosis: Begin Celexa 10mg PO daily , will titrate over time. Can increase to 20mg in 2 weeks if tolerating well Ativan 0.5mg PO q4h prn anxiety/insomnia and Ativan 0.5mg IV q6h prn panic attack (3) Weakness generalized: (4) Advanced care planning/counseling discussion: Tej and I met for 25min face to face and discussed the events to date He is very worried about findings and feels he might have ignored/dismissed his symptoms for too long but he was worried about how to get care without having health insurance. He states he works in [employer] at [employer]; the environment is often wet floors and he had a series of falls last December to January until he started using a cane. He states work did not offer him health insurance. He admits his mind has been racing with all of the information he has been getting. So far he understands this might be a cancer,unsure where it is from but likely prostate vs someplace in the bones.He knows his kidneys were not working right when he arrived but since the Castanon they have improved/he does not need dialysis. He is wondering what will be done to determine what type of cancer he has, if it is cancer. I advised him a consult with oncology has been ordered and they can help provide more guidance about how to determine type of cancer and further options/management guidelines. We spoke about his worries henry that if this can be treated, what does it mean for his life, how will things change, can he work/how will he afford care, how will he pay his bills etc. Advised of cancer navigation team in [facility] t help him once discharged and will also see what care mgt can do to help him while inpatient. He does not have a lot of social support. He lives alone, no pets. CV has helped submit MA adalgisa for him, so that appears to be underway for him. Offered pt continued follow up with me in OP [facility] clinic which he accepted. Contact info provided. It is noted pt does not drive. he will need to be connected to free r low cost medical access transportation options prior to dc so that he has a method and plan to keep his follow up appointments - care mgt will need to assist with this as part of his disposition planning. (5) Palliative care by specialist: Met with pt. Provided overview of Palliative Medicine, a subspecialty that provides specialized medical care for people living with a serious illness by offering a focus on quality of life. Palliative Medicine is often conflated with hospice: I advised patient/family that Palliative and hospice can be partners but we are not the same. It is important to understand the difference so that we may be informed, and not afraid. Palliative Medicine works to improve QOL through reduction of symptom burden/more control over their illness, for both the patient and family. We discussed that cancer patients experience significant symptom and psychosocial burden for which the early integration of supportive oncology with palliative medicine (early findings from the research of Danyel and Rachid) help address a growing need to manage patients comprehensively, with an emphasis on symptom control, nutritional and psychosocial support, and pharmaceutical review. Palliative care consultation in patients with advanced cancer is not only associated with an improvement in the quality of oncology care, but also a reduction in downstream healthcare utilization. In Jack et al 2017, when the automatic palliative medicine consult was triggered by specific oncology criteria, 30-day readmission rates and use of chemotherapy after discharge declined, whereas hospice referrals and uptake of support services post-discharge increased. Patients with advanced cancer admitted to an acute care hospital often have short life expectancies and high morbidity - for these patients, the integration of palliative care has improved symptom burden, reduced patient and caregiver distress, increased referral to hospice, and improved outcomes. We also reviewed there is strong evidence supporting the initiation of Palliative Care into the management of this patient with advanced met lung cancer; palliative care, when provided alongside oncologic care, leads to improved QOL, fewer depressive symptoms, better prognosis understanding and longer median survival henry when given the overall poor prognosis and QOL issues at hand. (Danyel et al. (2010). Early palliative care for patients with me tastatic pek-vefog-gqng lung cancer. [place] J of Med 363(3), 733-742. Doi: 10.1056/[id number].) I reviewed Palliative medicine clinicians are board certified, specially-trained and another member of the patient's medical care team. We often provide an extra layer of support because our care is based on the needs of the patient, not the prognosis; as such, it's appropriate at any age/advancing stage of a serious illness and can be provided along with curative treatment. Palliative Medicine clinicians are also trained in advanced communication methodologies, to facilitate complex discussions about advanced illness planning, which are needed to help assure that the treatment choices match the patient's goals. Plan * Symptom mgt medications as noted above * Awaiting further work up to arrive at formal dx, awaiting MRI, ortho consult noted * Awaiting oncology consult * Will need intensive care mgt support for assistance with medical transport to get to appointments after dc * He will follow up with me in OP [facility] clinic for ongoing care. Thank you for allowing us to participate in the ongoing care of this patient. Please don't hesitate to call or page with any additional concerns. Dr. Priscilla Fleming DNP Director, Palliative Care History of Present Illness Reason for Consultation: On 05/04/23 @ 16:08 Nadja Escobedo I. Wrote To Priscilla Fleming new metastatic cancer/anxiety/support Attending Physician: Lamin Barrett MD History of Present Illness Tej came to [facility] ED with LLE pain and weight loss which he reports began after a fall at work Dec 2022. He reported a 35 pound weight loss and decreased appetite over the past few months. Due to a lack of insurance, he seems CVIM. Imaging March 2023 revealed degenerative spondylosis with disc space narrowing at multiple levels; most severe L4-L5 and L5-S1. He c/o intermittent bladder loss and diminishing appetite Labs in ED: WBC 17.76 hyperkalemia 6.9 creatinine 7.03 anion gap 17 alk phos 770 D-dimer 15,000, troponin 27.2 increased to 33.8; suspect ischemic demand > ACS. PSA > 1420 PCT 0.77 --> 0.55 Lactate 0.8 immunology tests pending Tej is now admitted for Severe BHAVIN, hyperkalemia and metabolic acidosis with intractable back pain and microscopic hematuria. After placement of castanon, he had output of 5.6 liter of urine and rapid drop of Creat from 7 to 1.7 in less than 24 hrs time. This is felt to be consistent with Obstructive uropathy (Bladder Outlet obstruction) CT CAP revealed: 1. Multiple scattered osteoblastic metastatic foci seen throughout the visualized osseous structures of the chest. 2. There is a nondisplaced pathologic fracture at the T1 spinous process. 3. Mild interstitial/interlobular septal thickening, right greater than left. There are few subcentimeter groundglass irregular densities and a few subcentimeter nodular densities within the right lung. This is nonspecific but could be due to mild asymmetric pulmonary edema or an atypical pneumonitis. [address] follow-up recommended to ensure resolution/stability. 4. Aneurysmal dilatation of the ascending thoracic aorta measuring up to 5.4 cm in diameter. 1. Findings are consistent with extensive/diffuse osteoblastic metastatic disease. The appearance is most suggestive of metastatic prostate cancer. Correlate with the oncological history. 2. There is a pathologic compression fracture of L5 with mild loss of height and mildly retropulsed fragments. This does not cause significant central canal stenosis. 3. No additional fracture is seen involving the lumbar spine. 4. There is a pathologic fracture of the left sacral ala. 5. There are pathologically enlarged and calcified retroperitoneal and iliac darin in lymph nodes. This likely represents metastatic disease. 6. Markedly distended bladder contributing to gzuv-my-bbgaaebj bilateral hydroureteronephrosis A thoracic ascending AA measuring 5.4cm was noted on CT chest - Tej denies chest pain suggestive of dissection; a vascular consult was obtained and for now they have advised they would not recc repair electively until thoracic ascending AA reaches > 6 cm. A met malignancy is suspected Work up in progress Med onc consult is pending pt c/o severe anxiety and what is likely severe cancer related pain he tells me the leg and back pain was severe at time of ED arrival, now more bearable Anxiety has abated 50% since bladder obstruction improved with castanon He states he is aware this may be a cancer He is very worried about being uninsured and how this will affect his ability to be treated for the cancer Allergies Allergy/AdvReac Type Severity Reaction Status Date / Time No Known Allergies Allergy Unverified 05/04/23 14:00 Home Medications Medication Instructions Recorded Confirmed Type acetaminophen 500 mg tablet 500 mg PO Q6H PRN Pain (Scale 05/04/23 05/04/23 History Score 1-3) Patient History Medical History (Updated 05/05/23 @ 13:47 by Priscilla Fleming DNP) Palliative care by specialist Advanced care planning/counseling discussion Weakness generalized Anxiety associated with cancer diagnosis Cancer related pain Thoracic ascending aortic aneurysm Lumbar back pain Cachectic Unintentional weight loss BHAVIN (acute kidney injury) Metabolic acidosis No pertinent past medical history Surgical History No pertinent past surgical history Social History Smoking Status: Never smoker Second Hand Exposure: No; Do You Dip or Chew Tobacco: No; Hx Alcohol Use: No Hx Substance Use: No Preferred Language: Northern Irish Communication Ability: Effective Medical Sales Associate Required: No Beliefs That Will Affect Care: None Current Living Situation: Alone Other Information That Helps Us Care for You: No Feels Safe at Home: Yes Safety Concerns: Feels Safe At This Time Assistive Devices: Cane Review of Systems Review of Systems: All systems reviewed & are unremarkable except as noted in Subjective Physical Exam Constitutional: + thin, + frail appearing and + [place] shed Eyes: PERRL, conjunctivae normal, anicteric sclerae ENMT: Mouth: + dry oral mucous membranes and + poor dentition Neck: trachea midline, no thyromegaly Respiratory: normal respiratory effort, lungs clear to auscultation able to speak in complete sentences and symmetric chest movement Cardiovascular: RRR, no murmur, no edema Extremities: normal capillary refill Gastrointestinal (Abdomen): normal bowel sounds, soft, nontender, no hepatosplenomegaly Musculoskeletal: gen weakness BLE with muscle wasting, +deconditioning lower back tenderness at lumbosacral region with paraspinal tenderness lower lumbar to sacral region Skin: + turgor decreased and + dry skin Neurologic: awake Speech / Cognition: + abnormal speech Cranial Nerves: PERRL, normal accommodation, EOM intact bilaterally, tongue midline and able to rotate head bilaterally antalgic gait Psychiatric: Orientation: alert and oriented x 3 Apperance: appropriately dressed, appropriately groomed and appeared stated age Eye Contact: + fair eye contact Speech: normal rate/rhythm/volume of speech Affect: + anxious affect and + tearful affect Mood: + anxious mood Thought Process: + circumstantial thought process Thought Content: + preoccupation, + hopelessness and + loneliness Homicidal Thoughts: denies homicidal thoughts, denies homicidal plan and denies homicidal intent Cognition: recent memory grossly intact, remote memory grossly intact, attention grossly intact and language grossly intact Estimated Intelligence: consistent with education level Insight: + fair insight Judgment: + fair judgement Results & Data Vital Signs (Past 12 Hours) Vital Signs Temp Pulse Pulse Resp BP Pulse Ox O2 Del Method 05/05/23 07:50 36.7 C 97 H 18 112/50 L 99 Nasal Cannula 05/05/23 02:51 36.7 C 77 22 112/50 L 99 Nasal Cannula 05/04/23 23:32 80 05/04/23 23:00 36.8 C 88 20 115/50 L 100 Nasal Cannula O2 Flow Rate 05/05/23 07:50 2 05/05/23 02:51 05/04/23 23:32 05/04/23 23:00 Laboratory Results See HPI, data reviewed Diagnostic Findings See HPI, data reviewed PG Care Time/CCT Total # of Minutes Spent Total Time Spent with Patient: Total time spent is greater than 50% in coordination of care (as documented) at patient's floor/unit and/or counseling patient: I spent 90 minutes overall addressing this case: 15 min in medical data review/discussion with referring provi aj(s) and/or preparation for the visit 25 min in direct interaction with the patient/exam 25 min in Advance Care Planning/Goals of Care discussions as detailed above in note (must be >16min) 10 min in subsequent review and synthesis of assessment and plan 15 min communicating with other providers regarding the patient's case: Advanced Care Planning 00386 Advanced Care Planning 30 [place] [address] IN/OBS CONSULT LVL 5,80M Patient Type New History Comprehensive Exam Comprehensive Medical Decision Making High Complexity Diagnoses Cancer related pain G89.3 Anxiety associated with cancer diagnosis F41.1; C80.1 Weakness generalized R53.1 Advanced care planning/counseling discussion Z71.89 Palliative care by specialist Z51.5 Additional Codes Advanced Care Planning - 92216 Advanced Care Planning 30 Min: 80456 Advanced Care Planning 30 Min ([id number])
--- NOTE | 2023-05-05 11:56 | Electrocardiogram Report ---
Test Reason : Blood Pressure : / mmHG Vent. Rate : 100 BPM Atrial Rate : 100 BPM P-R Int : 166 ms QRS Dur : 102 ms QT Int : 330 ms P-R-T Axes : 046 -25 081 degrees QTc Int : 425 ms Normal sinus rhythm Voltage criteria for left ventricular hypertrophy Early repolarization Abnormal ECG No previous ECGs available Confirmed by García Goncalves ([id number]) on 05/05/2023 11:56:31 AM Referred By: REFERRED SELF Confirmed By:Troy Goncalves
--- NOTE | 2023-05-05 12:47 | Magnetic Resonance Report ---
MRI OF THE LUMBAR SPINE WITHOUT CONTRAST CLINICAL HISTORY: Left sciatica, L5 compression fracture COMPARISON STUDY: Lumbar spine CT May 04, 2023. TECHNIQUE: Utilizing a 1.5 Vianey magnet and dedicated coil, multiplanar, multiecho imaging of the jaylin ar spine was performed without IV contrast. FINDINGS: For purposes of numbering on this exam, the L5-S1 disc space is assigned to axial image 27 of 30. Ali gnment of the lumbar spine is anatomic. Multifocal marrow replacement is identified within the visual ized skeletal structures. 30% loss of vertebral body height of L5 is noted with minimal retropulsion at the superior endplate. This does not result in significant central canal stenosis. Bony expansion likely due to underlying metastatic disease within visualized portions of the sacrum is noted. Exam i s mildly compromised by motion artifact. Conus terminates at the mid L1 level. Pathologic retroperito scarlet lymphadenopathy is better depicted on CT of May 04, 2023. There is a slightly displaced left s acral ala fracture. Nondisplaced right fibular fracture is present. There are no additional fractures . No intracanalicular masses identified on unenhanced exam. No evidence for epidural extension of xenia or. Prominent epidural fat within the lower lumbar and sacral canal is present. L1-2: The central canal or neural foramen are patent. L2-3: The central canal and neural foramen are patent. L3-4: There is mild facet arthrosis. The central canal and neural foramen are patent. L4-5: There is moderate facet arthrosis. Minimal retropulsion at the superior endplate of L5 is prese nt. This does not result in significant central canal stenosis. There is mild left neural foraminal s tenosis. The right neural foramen is patent. L5-S1: The central canal and neural foramen are patent. IMPRESSION: 1. Multifocal marrow replacement consistent with metastatic disease. L5 pathologic fracture. Bilatera l sacral ala fractures, also likely pathologic. No epidural extension on unenhanced exam. 2. Minimal retropulsion at the superior endplate of L5. This does not result in significant central c anal stenosis. No severe central canal or neural foraminal stenosis. 3. Mild multilevel degenerative changes within the lumbar spine. 4. Pathologic retroperitoneal lymphadenopathy, better depicted on CT of May 04, 2023. ACT 112: Negative or not required by law. Electronically signed by: Fred Silverio M.D. 05/05/2023 12:45 PM
--- NOTE | 2023-05-05 13:33 | Nuclear Medicine Report ---
NUCLEAR PULMONARY PERFUSION SCAN CLINICAL HISTORY: Hypoxia. Elevated d-dimer. Cancer history. COMPARISON STUDY: Chest x-ray and chest CT dated 05/04/2023. TECHNIQUE: Nuclear perfusion scan of both lungs were obtained following the IV administration of 5.4 mCi of technetium 99m MAA. Images were acquired in the anterior, posterior, and oblique projections. FINDINGS: A chest x-ray performed same day 05/04/2023 shows cardiomegaly. The lungs are clear. Perfusion of both lungs is normal and symmetric. There are no segmental defects to suggest pulmonary embolus. IMPRESSION: Normal nuclear perfusion scan. ACT 112: Negative or not required by law. Electronically signed by: Keven Bernal M.D. 05/05/2023 1:32 PM
[2023-05-05] MEDS ORDERED: LORazepam 0.5 MG TAB PO PRN (13:53)
[2023-05-05] MEDS ORDERED: LORazepam 0.5 MG in SYRINGE 0.25 ML IV PRN (13:55)
[2023-05-05] MEDS: CITALOPRAM 20 MG TAB PO SCH (14:53)
--- NOTE | 2023-05-05 15:32 | Hospitalist Progress Note ---
Date of Service May 05, 2023 Assessment & Plan (1) Metabolic acidosis: (2) BHAVIN (acute kidney injury): (3) Unintentional weight loss: (4) Cachectic: (5) Lumbar back pain: Plan Mr. Marie is a 57 year old that presented to the ED today from [facility] for management of his left leg pain and weight loss. He has been having left leg pain since Thanksgiving where he fell in a hole at work. He has noticed a 35 pound weight loss and decreased appetite over the past few months. He is uninsured and was recently seen by [facility] for a minimal work up. He has has some radiologic imaging in March 2023; degenerative spondylosis with disc space narrowing at multiple levels; most severe L4-L5 L5-S1. He reports intermittent bladder loss. He has had a decreased appetite that has been worsening over the past few weeks. Leukocytosis 70.76, hyperkalemic 6.9, creatinine 7.03, anion gap 17, alk phos 770 with otherwise normal LFTs, D-dimer 15,000 370, troponin 27.2 increased to 33.8; suspect ischemic demand rather than ACS. Lactate pending. Doesnt have protein gap. Denies tobacco, alcohol, recreational drug use. Patient mother report uterine cancer; sister history NH Lymphoma. He denies fevers, chills, chest pain, palpitations, SOB, does report nausea, (-) vomiting or diarrhea. See Dr. Fernandez addendum for physical examination findings. Patient will be admitted for metabolic acidosis and acute kidney failure with intractable back pain and microscopic hematuria. Will obtain further imaging including abd/pelvis CT, lumbar CT without contrast, involve Nephrology. Have high suspicion of cancer; other differential includes tumor lysis syndrome, plasma cell disorder. Acute Renal Failure Hyperkalemia Anion gap Metabolic acidosis: Likely due to obstructive uropathy --CT ABD: Mild bilateral hydroureteronephrosis, likely related to bladder dist ention. Associated perinephric and periureteral stranding with possible urothelial thickening. Findings could be correlated with urinalysis. Numerous sclerotic skeletal lesions, several of which are expansile. This is highly suggestive of metastatic disease and metastatic prostate cancer is a primary consideration. Findings could be correlated with PSA level. Multiple mildly enlarged partially calcified abdominal and pelvic lymph nodes. This adenopathy is nonspecific and could reflect allie metastases however calcified allie metastases are uncommon in prostate cancer. A second primary cannot be excluded. Partially treated disease is within the differential as well. --Renal USD: Mild bilateral hydronephrosis again noted. Urothelial thickening within the right renal pelvis/ureter. Urology consultation recommended. -Cr:7.03>4.3>1.74 --Urine culture pending -Appreciate nephrology input Urology consulted as well Monitor renal function Avoid nephrotoxic agents as able Lokelma discontinued Empirically on Rocephin Continue IV fluids Metastatic disease Pathological L5 fracture Likely prostate primary --MRI Lumbar Spine:Multifocal marrow replacement consistent with metastatic disease. L5 pathologic fracture. Bilateral sacral ala fractures, also likely pathologic. No epidural extension on unenhanced exam. Minimal retropulsion at the superior endplate of L5. This does not result in significant central canal stenosis. No severe central canal or neural foraminal stenosis. Mild multilevel degenerative changes within the lumbar spine. Pathologic retroperitoneal l ymphadenopathy, better depicted on CT of May 04, 2023. -- CT abdomen as above --CT chest:Multiple scattered osteoblastic metastatic foci seen throughout the visualized osseous structures of the chest. There is a nondisplaced pathologic fracture at the T1 spinous process. Mild interstitial/interlobular septal thickening, right greater than left. There are few subcentimeter groundglass irregular densities and a few subcentimeter nodular densities within the right lung. This is nonspecific but could be due to mild asymmetric pulmonary edema or an atypical pneumonitis. [address] follow-up recommended to ensure resolution/stability. Aneurysmal dilatation of the ascending thoracic aorta measuring up to 5.4 cm in diameter. --PSA >1420 -Oncology consulted Appreciate palliative care input to address goals of care Pain control Fall precautions PT/OT as able Appreciate orthopedics input Elevated D-Dimer: Likely due to metastatic disease -- Could not do CTA due to BHAVIN V/Q Scan:Normal nuclear perfusion scan. -Venous Doppler:No evidence of deep venous thrombus within the bilateral lower extremities. Abdominal aortic aneurysm CT:Aneurysmal dilatation of the ascending thoracic aorta measuring up to 5.4 cm in diamete --ECHO pending Appreciate vascular surgery input No indication for intervention currently Will need repeat imaging in 6 months for surveillance Will need CT surgery evaluation eventually Mild Troponin elevation Likely due to renal insufficiency Less likely ACS Monitor Prediabetes HbA1c 5.7 Monitor Anemia of chronic disease Microscopic hematuria Likely due to metastatic disease Immunofixation, kappa lambda chain workup pending No gross hematuria No other bleeding issues Monitor CBC Severe protein calorie malnutrition Unintentional weight loss Likely secondary to metastatic disease BMI 21 Dietitian consulted Anxiety: Likely situational H/O Mood disorder PRN Ativan ordered Continue Celexa DVT Px: Heparin SQ Code Status: Full code for now Admission and Anticipated Discharge Date Admission Date: May 04, 2023 Subjective Patient is seen and examined at bedside Reports back pain associated with left leg pain which has been ongoing Admits to have significant weight loss and loss of appetite lately Denies any chest pain, dyspnea, nausea, vomiting, abdominal pain Discussed with nephrology today Renal function improving No other complaints Updated patient's mother at bedside Review of Systems Review of Systems: All systems reviewed & are unremarkable except as noted in Subjective Physical Exam Physical Exam: Physical Exam: Vitals signs as noted above General Appearance:Thin, frail, no apparent distress Head: normocephalic, Atraumatic Eyes: normal inspection, EOMI Neck: supple, Trachea midline Respiratory/Chest: Normal breath sounds, CTA, No accessory muscle use Cardiovascular: S1, S2, +murmur Abdomen/GI:Soft, Non tender, Bowel sounds present Extremities/Musculoskeletal:normal inspection, no edema Neurologic/Psych:AAOX3, grossly no focal neurological deficits Skin: normal color, warm Results & Data Results & Data Vital Signs (Past 12 Hours) Vital Signs Temp Pulse Pulse Resp BP Pulse Ox O2 Del Method 05/05/23 15:27 110 H 05/05/23 07:50 Nasal Cannula 05/05/23 07:50 66 05/05/23 07:50 36.7 C 97 H 18 112/50 L 99 Nasal Cannula O2 Flow Rate 05/05/23 15:27 05/05/23 07:50 1 05/05/23 07:50 05/05/23 07:50 2 Laboratory Results Short CBC 05/05/23 Range/Units 06:01 WBC 6.52 D (4.8-10.8) K/ul Hgb 8.8 L (14.0-18.0) g/dl Hct 27.3 L (42.0-52.0) % Plt Count 367 (130-400) K/uL BMP 05/04/23 05/04/23 05/05/23 15:50 20:27 06:01 Sodium 135 L 139 143 Potassium 6.8 H* 5.2 H D 4.9 Chloride 108 H 110 H 114 H Carbon Dioxide 14 L 21 23 BUN 96 H 73 H D 42 H D Creatinine 6.70 H* D 4.33 H D 1.74 H D Glucose 136 H 128 H 114 H Calcium 8.3 L 8.3 L 8.4 L Liver Function 05/05/23 Range/Units 06:01 Total Bilirubin 0.4 (0.2-1.0) mg/dl AST 14 (13-39) U/L ALT 6 L (7-52) U/L Alkaline Phosphatase 557 H (34-104) U/L Albumin 3.0 L (3.4-5.0) gm/dl
[2023-05-05] MEDS: LORazepam 0.5 MG TAB PO PRN (19:33)
--- NOTE | 2023-05-05 19:48 | Oncology Consultation ---
Date of Consultation May 05, 2023 Assessment & Plan (1) Metastatic cancer: I had a lengthy discussion with the patient as well as his primary doctor in the hospital. I have recommended a bone biopsy. My concern is that he has metastatic prostate cancer as evidenced by severely elevated PSA, enlarged prostate and metastatic disease to the bone. Bone biopsy will give us higher staging as well as would be the most easy biopsy to obtain. Given the severely elevated PSA level, widespread metastatic disease if we establish he has prostate cancer and this will be high-volume prostate cancer. My recommendation on an outpatient basis would be to institute treatment with androgen deprivation therapy, abiraterone, docetaxel together per the peace 1 trial. However I will have definitive recommendations once I have biopsy-proven diagnosis This was shared with his primary hospital internal medicine doctor, Dr. Lamin Montoya MD Plan Thank you for this interesting oncological consult. A total of 60 minutes were spent in counseling, coordination of care and review of prior records. History of Present Illness Reason for Consultation: ? Metastatic prostate cancer Attending Physician: Lamin Barrett MD History of Present Illness The patient is a very pleasant 57-year-old gentleman who has presented to [facility] ER with severe low back pain and back pain. He has lost 20 pound or weight over the last few months. He is having severe back pain. His appetite has been poor. He came to the hospital here had a CT of the chest abdomen pelvis which revealed widespread osseous metastatic disease. This was confirmed on a MRI of the spine. PSA level was checked and was 1400 ng/mL. Medical oncology has been consulted to assist in management of this patient with possible metastatic prostate cancer with widespread osseous metastatic disease Allergies Allergy/AdvReac Type Severity Reaction Status Date / Time No Known Allergies Allergy Unverified 05/04/23 14:00 Home Medications Medication Instructions Recorded Confirmed Type acetaminophen 500 mg tablet 500 mg PO Q6H PRN Pain (Scale 05/04/23 05/04/23 History Score 1-3) Patient History Medical History (Updated 05/05/23 @ 13:47 by Priscilla Fleming DNP) Palliative care by specialist Advanced care planning/counseling discussion Weakness generalized Anxiety associated with cancer diagnosis Cancer related pain Thoracic ascending aortic aneurysm Lumbar back pain Cachectic Unintentional weight loss BHAVIN (acute kidney injury) Metabolic acidosis No pertinent past medical history Surgical History No pertinent past surgical history Social History Smoking Status: Never smoker Second Hand Exposure: No; Do You Dip or Chew Tobacco: No; Hx Alcohol Use: No Hx Substance Use: No Preferred Language: Vietnamese Communication Ability: Effective Food Storeroom Clerk Required: No Beliefs That Will Affect Care: None Current Living Situation: Alone Other Information That Helps Us Care for You: No Feels Safe at Home: Yes Safety Concerns: Feels Safe At This Time Assistive Devices: Cane Review of Systems Review of Systems: All systems reviewed & are unremarkable except as noted in Subjective Constitutional: as per Subjective / HPI Eyes: as per Subjective / HPI Ear, Nose, Mouth, Throat: as per Subjective / HPI Respiratory: as per Subjective / HPI Cardiovascular: as per Subjective / HPI Gastrointestinal: as per Subjective / HPI Genitourinary: + as per Subjective / HPI Musculoskeletal: as per Subjective / HPI Neurologic: as per Subjective / HPI Endocrine: as per Subjective / HPI Hematologic / Lymphatic: as per Subjective / HPI Physical Exam Constitutional: WD/WN, vitals as above Eyes: PERRL, conjunctivae normal, anicteric sclerae ENMT: external ear and nose normal, oropharynx normal Neck: trachea midline, no thyromegaly Respiratory: normal respiratory effort, lungs clear to auscultation Cardiovascular: RRR, no murmur, no edema Gastrointestinal (Abdomen): normal bowel sounds, soft, nontender, no hepatosplenomegaly Musculoskeletal: no cyanosis or clubbing, extremities motor strength 5/5 Skin: no rashes, warm and dry Neurologic: patellar DTR's 2+ bilat, sensation intact Results & Data Vital Signs (Past 12 Hours) Vital Signs Temp Pulse Pulse Resp BP Pulse Ox O2 Del Method 05/05/23 19:00 36.9 C 92 H 16 129/61 92 Room Air 05/05/23 17:00 36.7 C 97 H 18 131/71 97 Nasal Cannula 05/05/23 15:27 110 H 05/05/23 11:02 36.8 C 89 16 128/65 100 Nasal Cannula 05/05/23 07:50 Nasal Cannula 05/05/23 07:50 66 05/05/23 07:50 36.7 C 97 H 18 112/50 L 99 Nasal Cannula O2 Flow Rate 05/05/23 19:00 05/05/23 17:00 2 05/05/23 15:27 05/05/23 11:02 2 05/05/23 07:50 1 05/05/23 07:50 05/05/23 07:50 2 (1) Metastatic cancer Area of secondary neoplastic involvement: unspecified site Qualified Code(s): C79.9 - Secondary malignant neoplasm of unspecified site
[2023-05-06 07:07] LABS: Hematocrit (blood only) 29.9 % (42.0-52.0); Hemoglobin 9.5 g/dl (14.0-18.0); Mean Corpuscular Hemoglobin 29.2 pg (25.0-34.0); Mean Corpuscular Hgb Conc 31.8 g/dL (32.0-36.0); Mean Platelet Volume 8.7 fL (9.4-12.4); Platelet Count 387 K/uL (130-400); RDW Coefficient of Variation 14.5 % (11.5-14.5); RDW Standard Deviation 49.2 fL (36.4-46.3); Red Blood Count 3.25 M/uL (4.70-6.10); White Blood Count 9.71 K/ul (4.8-10.8)
[2023-05-06 07:30] LABS: BUN Creatinine Ratio 16.5 (10-20); Calcium 8.8 mg/dl (8.6-10.3); Est GFR (African American) 113.9 ml/min; Est GFR (Non-African American) 98.3 ml/min; Potassium 4.4 mmol/L (3.5-5.1)
--- NOTE | 2023-05-06 08:52 | Urology Consultation ---
Date of Consultation May 06, 2023 Assessment & Plan (1) Metastatic cancer: (2) Prostate cancer: Plan I have reviewed all of the prior consultations and imaging studies as well as labs Clinically he has metastatic prostate cancer with a PSA of 1500 Oncology would like to obtain tissue for diagnosis and tentatively plan for bone biopsy followed by initiation of treatment with androgen deprivation (combined with abiraterone) plus docetaxel We have tried to reassure the patient that despite his current situation we may be able to achieve substantial improvement in his symptoms and disease state I have discussed that if they are unable to perform the bone biopsy we can con reinforced steel placing supervisor direct prostate biopsy Overall, I am uncertain there is a great role for urology in his care at this stage and I think his primary management will be conducted by oncology I will defer the decision-making process to oncology at this stage History of Present Illness Attending Physician: Lamin Barrett MD History of Present Illness 57-year-old gentleman presenting with a PSA of 1500 and imaging evidence of widespread metastatic prostate cancer He does have a family history of prostate canceris somewhat estranged from his father but his father had advanced prostate cancer in his late 70s and is currently managed appropriately with disease in remission Currently with Grimm catheter in place Creatinine has improved dramatically since placement of the catheter Generalized weakness and some discomfort Has had consultations already with internal medicine, nephrology, oncology, spine surgery Allergies Allergy/AdvReac Type Severity Reaction Status Date / Time No Known Allergies Allergy Unverified 05/04/23 14:00 Home Medications Medication Instructions Recorded Confirmed Type acetaminophen 500 mg tablet 500 mg PO Q6H PRN Pain (Scale 05/04/23 05/04/23 History Score 1-3) Patient History Medical History (Updated 05/06/23 @ 08:51 by García Waterman MD) Palliative care by specialist Advanced care planning/counseling discussion Weakness generalized Anxiety associated with cancer diagnosis Cancer related pain Thoracic ascending aortic aneurysm Lumbar back pain Cachectic Unintentional weight loss BHAVIN (acute kidney injury) Metabolic acidosis No pertinent past medical history Surgical History No pertinent past surgical history Social History Smoking Status: Never smoker Second Hand Exposure: No; Do You Dip or Chew Tobacco: No; Hx Alcohol Use: No Hx Substance Use: No Preferred Language: Polish Communication Ability: Effective Trust Vault Clerk Required: No Beliefs That Will Affect Care: None Current Living Situation: Alone Other Information That Helps Us Care for You: No Feels Safe at Home: Yes Safety Concerns: Feels Safe At This Time Assistive Devices: Cane Physical Exam Physical Exam: Grimm catheter draining appropriately Abdomen soft Hemodynamically stableafebrile, borderline tachycardic but otherwise no abnormalities Results & Data Vital Signs (Past 12 Hours) Vital Signs Temp Pulse Pulse Resp BP Pulse Ox O2 Del Method 05/06/23 07:51 36.9 C 99 H 17 134/66 96 Room Air 05/06/23 03:10 36.5 C 108 H 16 136/68 95 Room Air 05/05/23 23:13 99 H 05/05/23 22:28 37.0 C 92 H 17 127/65 97 Room Air PG Care Time/CCT Total # of Minutes Spent Total Time Spent with Patient: Total time spent is greater than 50% in coordination of care (as documented) at patient's floor/unit and/or counseling patient: Coding Level of Care Code 67673 IN/OBS CONSULT LVL 4,60M Diagnoses Metastatic cancer C79.9 Area of secondary neoplastic involvement: unspecified site Prostate cancer C61 (1) Metastatic cancer Area of secondary neoplastic involvement: unspecified site Qualified Code(s): C79.9 - Secondary malignant neoplasm of unspecified site
--- NOTE | 2023-05-06 15:30 | Hospitalist Progress Note ---
Date of Service May 06, 2023 Assessment & Plan (1) Metabolic acidosis: (2) BHAVIN (acute kidney injury): (3) Unintentional weight loss: (4) Cachectic: (5) Lumbar back pain: Plan Mr. Marie is a 57 year old that presented to the ED today from [facility] for management of his left leg pain and weight loss. He has been having left leg pain since Thanksgiving where he fell in a hole at work. He has noticed a 35 pound weight loss and decreased appetite over the past few months. He is uninsured and was recently seen by [facility] for a minimal work up. He has has some radiologic imaging in March 2023; degenerative spondylosis with disc space narrowing at multiple levels; most severe L4-L5 L5-S1. He reports intermittent bladder loss. He has had a decreased appetite that has been worsening over the past few weeks. Leukocytosis 70.76, hyperkalemic 6.9, creatinine 7.03, anion gap 17, alk phos 770 with otherwise normal LFTs, D-dimer 15,000 370, troponin 27.2 increased to 33.8; suspect ischemic demand rather than ACS. Lactate pending. Doesnt have protein gap. Denies tobacco, alcohol, recreational drug use. Patient mother report uterine cancer; sister history NH Lymphoma. He denies fevers, chills, chest pain, palpitations, SOB, does report nausea, (-) vomiting or diarrhea. See Dr. Fernandez addendum for physical examination findings. Patient will be admitted for metabolic acidosis and acute kidney failure with intractable back pain and microscopic hematuria. Will obtain further imaging including abd/pelvis CT, lumbar CT without contrast, involve Nephrology. Have high suspicion of cancer; other differential includes tumor lysis syndrome, plasma cell disorder. Acute Renal Failure Hyperkalemia Anion gap Metabolic acidosis: Likely due to obstructive uropathy --CT ABD: Mild bilateral hydroureteronephrosis, likely related to bladder dist ention. Associated perinephric and periureteral stranding with possible urothelial thickening. Findings could be correlated with urinalysis. Numerous sclerotic skeletal lesions, several of which are expansile. This is highly suggestive of metastatic disease and metastatic prostate cancer is a primary consideration. Findings could be correlated with PSA level. Multiple mildly enlarged partially calcified abdominal and pelvic lymph nodes. This adenopathy is nonspecific and could reflect allie metastases however calcified allie metastases are uncommon in prostate cancer. A second primary cannot be excluded. Partially treated disease is within the differential as well. --Renal USD: Mild bilateral hydronephrosis again noted. Urothelial thickening within the right renal pelvis/ureter. Urology consultation recommended. -Cr:7.03>4.3>1.74>0.79 --Urine culture negative -Appreciate nephrology input Urology consulted as well Monitor renal function Avoid nephrotoxic agents as able Lokelma discontinued Discontinue IV fluids Metastatic disease Pathological L5 fracture Likely prostate primary --MRI Lumbar Spine:Multifocal marrow replacement consistent with metastatic di sease. L5 pathologic fracture. Bilateral sacral ala fractures, also likely pathologic. No epidural extension on unenhanced exam. Minimal retropulsion at the superior endplate of L5. This does not result in significant central canal stenosis. No severe central canal or neural foraminal stenosis. Mild multilevel degenerative changes within the lumbar spine. Pathologic retroperitoneal lymphadenopathy, better depicted on CT of May 04, 2023. -- CT abdomen as above --CT chest:Multiple scattered osteoblastic metastatic foci seen throughout the visualized osseous structures of the chest. There is a nondisplaced pathologic fracture at the T1 spinous process. Mild interstitial/interlobular septal thickening, right greater than left. There are few subcentimeter groundglass irr egular densities and a few subcentimeter nodular densities within the right lung. This is nonspecific but could be due to mild asymmetric pulmonary edema or an atypical pneumonitis. [address] follow-up recommended to ensure resolution/stability. Aneurysmal dilatation of the ascending thoracic aorta measuring up to 5.4 cm in diameter. --PSA >1420 Appreciate oncology input Appreciate palliative care input to address goals of care Pain control Fall precautions PT/OT as able Appreciate orthopedics input Plan for bone biopsy on Monday Needs follow-up with oncology on discharge Elevated D-Dimer: Likely due to metastatic disease -- Could not do CTA due to BHAVIN V/Q Scan:Normal nuclear perfusion scan. -Venous Doppler:No evidence of deep venous thrombus within the bilateral lower extremities. Abdominal aortic aneurysm Severe aortic regurgitation CT:Aneurysmal dilatation of the ascending thoracic aorta measuring up to 5.4 cm in diameter --ECHO: Left ventricle is moderately dilated. EF 50-55%. Significant trabeculation of the left ventricular apex extending into the apical septum and apical lateral wall. Aortic valve is bicuspid. Aortic valve is moderately calcified. Severe aortic regurgitation. Moderate valvular aortic stenosis. Moderate to severe mitral regurgitation. Mitral regurgitation jet is eccentric and posteriorly directed. Ascending aorta is severely enlarged, 5.3 cm. Appreciate vascular surgery input [facility]: Patient would qualify for arctic valve replacement and ascending aortic repair. No urgent need for transfer to tertiary care facility. Recommends to follow-up with CT surgery on discharge Mild Troponin elevation Likely due to renal insufficiency Less likely ACS Monitor Prediabetes HbA1c 5.7 Monitor Anemia of chronic disease Microscopic hematuria Likely due to metastatic disease Immunofixation, kappa lambda chain workup pending No gross hematuria No other bleeding issues Monitor CBC Severe protein calorie malnutrition Unintentional weight loss Likely secondary to metastatic disease BMI 21 Dietitian consulted Anxiety: Likely situational H/O Mood disorder PRN Ativan ordered Continue Celexa DVT Px: Heparin SQ Code Status: Full code for now Admission and Anticipated Discharge Date Admission Date: May 04, 2023 Subjective Patient is seen and examined at bedside States feeling tired Poor sleep overnight Reports chronic back pain Discussed with oncology and CT surgery today Renal function back to baseline Denies any chest pain, dyspnea, nausea, vomiting, abdominal pain Review of Systems Review of Systems: All systems reviewed & are unremarkable except as noted in Subjective Physical Exam Physical Exam: Physical Exam: Vitals signs as noted above General Appearance:Thin, frail, no apparent distress Head: normocephalic, Atraumatic Eyes: normal inspection, EOMI Neck: supple, Trachea midline Respiratory/Chest: Normal breath sounds, CTA, No accessory muscle use Cardiovascular: S1, S2, +murmur Abdomen/GI:Soft, Non tender, Bowel sounds present Extremities/Musculoskeletal:normal inspection, no edema Neurologic/Psych:AAOX3, grossly no focal neurological deficits Skin: normal color, warm Results & Data Results & Data Vital Signs (Past 12 Hours) Vital Signs Temp Pulse Pulse Resp BP Pulse Ox O2 Del Method 05/06/23 14:59 81 05/06/23 11:45 37.1 C 94 H 17 115/58 L 97 Room Air 05/06/23 08:20 88 05/06/23 07:51 36.9 C 99 H 17 134/66 96 Room Air Laboratory Results Short CBC 05/06/23 Range/Units 06:41 WBC 9.71 (4.8-10.8) K/ul Hgb 9.5 L (14.0-18.0) g/dl Hct 29.9 L (42.0-52.0) % Plt Count 387 (130-400) K/uL BMP 05/06/23 06:41 Sodium 142 Potassium 4.4 Chloride 110 H Carbon Dioxide 26 BUN 13 D Creatinine 0.79 D Glucose 95 Calcium 8.8
[2023-05-06] MEDS: ONDANSETRON INJ 2 MG/ML 2 ML VIAL IV PRN (16:49)
[2023-05-06] MEDS: HYDROmorphone INJ 0.5 MG/0.5 ML SYR IV PRN (21:51)
[2023-05-07 05:51] LABS: Hematocrit (blood only) 29.3 % (42.0-52.0); Hemoglobin 9.5 g/dl (14.0-18.0); Mean Corpuscular Hemoglobin 29.8 pg (25.0-34.0); Mean Corpuscular Hgb Conc 32.4 g/dL (32.0-36.0); Mean Corpuscular Volume 91.8 fL (80.0-100.0); Mean Platelet Volume 8.7 fL (9.4-12.4); Platelet Count 387 K/uL (130-400); RDW Coefficient of Variation 14.1 % (11.5-14.5); RDW Standard Deviation 47.7 fL (36.4-46.3); Red Blood Count 3.19 M/uL (4.70-6.10)
[2023-05-07 06:09] LABS: BUN Creatinine Ratio 14.3 (10-20); Calcium 8.7 mg/dl (8.6-10.3); Creatinine Clr Calc Pharmacy 84.4 ml/min; Est GFR (African American) 115.1 ml/min; Est GFR (Non-African American) 99.3 ml/min; Magnesium 1.6 mg/dl (1.7-2.4); Potassium 4.3 mmol/L (3.5-5.1)
--- NOTE | 2023-05-07 07:19 | Orthopedic Progress Note ---
Date of Service May 07, 2023 Assessment & Plan (1) Back pain: Plan: Patient does have a pathologic compression deformity of L5. In light of his medical situation at this point we are opting to treat this nonoperatively. His back pain is intermittent and not severe at this point. He is can go through the rest of his medical workup and treatment for his metastatic disease. If we can be of further assistance please contact our service Admission and Anticipated Discharge Date Admission Date: May 04, 2023 Subjective Patient reports continued left leg pain and numbness. He has intermittent back pain more of a soreness than a true sharp pain. He had his recent MRI performed. He denies any other numbness, tingling, paresthesias. Physical Exam Physical Exam: On exam he is alert and oriented. His strength and sensation are grossly intact abdomen soft nontender calves are supple nontender. Results & Data Vital Signs (Past 12 Hours) Vital Signs Temp Pulse Pulse Resp BP Pulse Ox O2 Del Method 05/07/23 02:59 37.0 C 105 H 20 131/65 96 Room Air 05/07/23 01:00 103 H 05/06/23 23:00 37.0 C 106 H 18 105/40 L 97 Room Air Diagnostic Findings MRI of the lumbar spine performed on recently reveals marrow changes at multiple levels. There is an L5 compression deformity. I do not appreciate any high- grade stenosis or large disc herniations. No significant neurologic compression is noted. (1) Back pain Back pain laterality: bilateral Back pain location: low back pain Chronicity: acute Sciatica presence: without sciatica Qualified Code(s): M54.50 - Low back pain, unspecified
[2023-05-07] MEDS: MAGNESIUM CHLORIDE W/CALCIUM 64MG DELAYED REL TAB PO SCH (09:57)
--- NOTE | 2023-05-07 13:54 | Hospitalist Progress Note ---
Date of Service May 07, 2023 Assessment & Plan (1) Metabolic acidosis: (2) BHAVIN (acute kidney injury): (3) Unintentional weight loss: (4) Cachectic: (5) Lumbar back pain: Plan Mr. Marie is a 57 year old that presented to the ED today from [facility] for management of his left leg pain and weight loss. He has been having left leg pain since Thanksgiving where he fell in a hole at work. He has noticed a 35 pound weight loss and decreased appetite over the past few months. He is uninsured and was recently seen by [employer] for a minimal work up. He has has some radiologic imaging in March 2023; degenerative spondylosis with disc space narrowing at multiple levels; most severe L4-L5 L5-S1. He reports intermittent bladder loss. He has had a decreased appetite that has been worsening over the past few weeks. Leukocytosis 70.76, hyperkalemic 6.9, creatinine 7.03, anion gap 17, alk phos 770 with otherwise normal LFTs, D-dimer 15,000 370, troponin 27.2 increased to 33.8; suspect ischemic demand rather than ACS. Lactate pending. Doesnt have protein gap. Denies tobacco, alcohol, recreational drug use. Patient mother report uterine cancer; sister history NH Lymphoma. He denies fevers, chills, chest pain, palpitations, SOB, does report nausea, (-) vomiting or diarrhea. See Dr. Fernandez addendum for physical examination findings. Patient will be admitted for metabolic acidosis and acute kidney failure with intractable back pain and microscopic hematuria. Will obtain further imaging including abd/pelvis CT, lumbar CT without contrast, involve Nephrology. Have high suspicion of cancer; other differential includes tumor lysis syndrome, plasma cell disorder. Acute Renal Failure Hyperkalemia Anion gap Metabolic acidosis: Likely due to obstructive uropathy --CT ABD: Mild bilateral hydroureteronephrosis, likely related to bladder dist ention. Associated perinephric and periureteral stranding with possible urothelial thickening. Findings could be correlated with urinalysis. Numerous sclerotic skeletal lesions, several of which are expansile. This is highly suggestive of metastatic disease and metastatic prostate cancer is a primary consideration. Findings could be correlated with PSA level. Multiple mildly enlarged partially calcified abdominal and pelvic lymph nodes. This adenopathy is nonspecific and could reflect allie metastases however calcified allie metastases are uncommon in prostate cancer. A second primary cannot be excluded. Partially treated disease is within the differential as well. --Renal USD: Mild bilateral hydronephrosis again noted. Urothelial thickening within the right renal pelvis/ureter. Urology consultation recommended. -Cr:7.03>4.3>1.74>0.79 --Urine culture negative -Appreciate nephrology input Urology consulted as well Monitor renal function Avoid nephrotoxic agents as able Lokelma discontinued Discontinue IV fluids Renal function remains stable Continue Grimm catheter Metastatic disease Pathological L5 fracture Likely prostate primary --MRI Lumbar Spine:Multifocal marrow replacement consistent with metastatic disease. L5 pathologic fracture. Bilateral sacral ala fractures, also likely pathologic. No epidural extension on unenhanced exam. Minimal retropulsion at the superior endplate of L5. This does not result in significant central canal stenosis. No severe central canal or neural foraminal stenosis. Mild multilevel degenerative changes within the lumbar spine. Pathologic retroperitoneal lymphadenopathy, better depicted on CT of May 04, 2023. -- CT abdomen as above --CT chest:Multiple scattered osteoblastic metastatic foci seen throughout the visualized osseous structures of the chest. There is a nondisplaced pathologic fracture at the T1 spinous process. Mild interstitial/interlobular septal thickening, right greater than left. There are few subcentimeter groundglass irregular densities and a few subcentimeter nodular densities within the right lung. This is nonspecific but could be due to mild asymmetric pulmonary edema or an atypical pneumonitis. [address] follow-up recommended to ensure resolution/stability. Aneurysmal dilatation of the ascending thoracic aorta measuring up to 5.4 cm in diameter. --PSA >1420 Appreciate oncology input Appreciate palliative care input to address goals of care Pain control Fall precautions PT/OT as able Appreciate orthopedics input Needs follow-up with oncology on discharge Plan for bone biopsy tomorrow No intervention for L5 fracture given metastatic disease per Ortho Elevated D-Dimer: Likely due to metastatic disease -- Could not do CTA due to BHAVIN V/Q Scan:Normal nuclear perfusion scan. -Venous Doppler:No evidence of deep venous thrombus within the bilateral lower extremities. Abdominal aortic aneurysm Severe aortic regurgitation CT:Aneurysmal dilatation of the ascending thoracic aorta measuring up to 5.4 cm in diameter --ECHO: Left ventricle is moderately dilated. EF 50-55%. Significant trabeculation of the left ventricular apex extending into the apical septum and apical lateral wall. Aortic valve is bicuspid. Aortic valve is moderately calcified. Severe aortic regurgitation. Moderate valvular aortic stenosis. Moderate to severe mitral regurgitation. Mitral regurgitation jet is eccentric and posteriorly directed. Ascending aorta is severely enlarged, 5.3 cm. Appreciate vascular surgery input Discussed with CT surgeon [facility] [place]. [place] on 05/06/23: Patient would qualify for arctic valve replacement and ascending aortic repair. No urgent need for transfer to tertiary care facility. Recommends to follow-up with CT surgery on discharge Updated patient's family on 05/06/2023 Mild Troponin elevation Likely due to renal insufficiency Less likely ACS Monitor Prediabetes HbA1c 5.7 Monitor Anemia of chronic disease Microscopic hematuria Likely due to metastatic disease Immunofixation, kappa lambda chain workup pending No gross hematuria No other bleeding issues Monitor CBC Severe protein calorie malnutrition Unintentional weight loss Likely secondary to metastatic disease BMI 21 Dietitian consulted Anxiety: Likely situational H/O Mood disorder PRN Ativan ordered Continue Celexa DVT Px: Heparin SQ Code Status: Full code Admission and Anticipated Discharge Date Admission Date: May 04, 2023 Subjective Patient is seen and examined at bedside No significant change when compared to yesterday Back pain is controlled Also reports some left foot discomfort No other complaints today Denies any chest pain, dyspnea, nausea, vomiting, abdominal pain Plan for bone biopsy tomorrow Review of Systems Review of Systems: All systems reviewed & are unremarkable except as noted in Subjective Physical Exam Physical Exam: Physical Exam: Vitals signs as noted above General Appearance:Thin, frail, no apparent distress Head: normocephalic, Atraumatic Eyes: normal inspection, EOMI Neck: supple, Trachea midline Respiratory/Chest: Normal breath sounds, CTA, No accessory muscle use Cardiovascular: S1, S2, +murmur Abdomen/GI:Soft, Non tender, Bowel sounds present Extremities/Musculoskeletal:normal inspection, no edema Neurologic/Psych:AAOX3, grossly no focal neurological deficits Skin: normal color, warm Results & Data Results & Data Vital Signs (Past 12 Hours) Vital Signs Temp Pulse Pulse Resp BP Pulse Ox O2 Del Method 05/07/23 11:31 37.0 C 93 H 17 116/64 96 Room Air 05/07/23 07:34 37.0 C 103 H 17 129/67 99 Room Air 05/07/23 07:30 100 H 05/07/23 02:59 37.0 C 105 H 20 131/65 96 Room Air Laboratory Results Short CBC 05/07/23 Range/Units 05:20 WBC 9.40 (4.8-10.8) K/ul Hgb 9.5 L (14.0-18.0) g/dl Hct 29.3 L (42.0-52.0) % Plt Count 387 (130-400) K/uL BMP 05/07/23 05:20 Sodium 139 Potassium 4.3 Chloride 107 Carbon Dioxide 24 BUN 11 Creatinine 0.77 Glucose 95 Calcium 8.7
[2023-05-07] MEDS: POLYETHYLENE (MIRALAX) 17 GM PACK PO PRN (18:52)
[2023-05-07] MEDS: oxyCODONE/ACETAMINOPHEN 5mg/325mg TAB PO PRN (20:17)
[2023-05-08 06:15] LABS: Hematocrit (blood only) 31.6 % (42.0-52.0); Hemoglobin 10.1 g/dl (14.0-18.0); Mean Corpuscular Hemoglobin 29.2 pg (25.0-34.0); Mean Corpuscular Volume 91.3 fL (80.0-100.0); Mean Platelet Volume 8.7 fL (9.4-12.4); Platelet Count 405 K/uL (130-400); RDW Coefficient of Variation 13.8 % (11.5-14.5); RDW Standard Deviation 45.5 fL (36.4-46.3); Red Blood Count 3.46 M/uL (4.70-6.10)
[2023-05-08 06:33] LABS: BUN Creatinine Ratio 15.6 (10-20); Calcium 8.9 mg/dl (8.6-10.3); Creatinine Clr Calc Pharmacy 83.7 ml/min; Est GFR (African American) 115.1 ml/min; Est GFR (Non-African American) 99.3 ml/min; Potassium 4.2 mmol/L (3.5-5.1)
[2023-05-08 08:14] LABS: INR 1.1 (0.9-1.1); Prothrombin Time 11.6 Seconds (9.0-12.0)
--- NOTE | 2023-05-08 12:20 | Communication Note ---
Date of Service: May 08, 2023 NEPHROLOGY review pt admitted w/ obstructive uropathy, creat 7, hyprekalemia; ultimately dx'd w/ prostate CA; also found to have severe aortic valve issues and for CT surgery c/s on d/c. Renal function including K normalized w/ relief of obstruction and supportive care. Will sign off. No outpt nephro f/u needed unless renal function worsens again. Appreciate c/s.
--- NOTE | 2023-05-08 16:40 | Hospitalist Progress Note ---
Date of Service May 08, 2023 Assessment & Plan (1) Metabolic acidosis: (2) BHAVIN (acute kidney injury): (3) Unintentional weight loss: (4) Cachectic: (5) Lumbar back pain: Plan Mr. Marie is a 57 year old that presented to the ED today from [facility] for management of his left leg pain and weight loss. He has been having left leg pain since Thanksgiving where he fell in a hole at work. He has noticed a 35 pound weight loss and decreased appetite over the past few months. He is uninsured and was recently seen by [employer] for a minimal work up. He has has some radiologic imaging in March 2023; degenerative spondylosis with disc space narrowing at multiple levels; most severe L4-L5 L5-S1. He reports intermittent bladder loss. He has had a decreased appetite that has been worsening over the past few weeks. Leukocytosis 70.76, hyperkalemic 6.9, creatinine 7.03, anion gap 17, alk phos 770 with otherwise normal LFTs, D-dimer 15,000 370, troponin 27.2 increased to 33.8; suspect ischemic demand rather than ACS. Lactate pending. Doesnt have protein gap. Denies tobacco, alcohol, recreational drug use. Patient mother report uterine cancer; sister history NH Lymphoma. He denies fevers, chills, chest pain, palpitations, SOB, does report nausea, (-) vomiting or diarrhea. See Dr. Fernandez addendum for physical examination findings. Patient will be admitted for metabolic acidosis and acute kidney failure with intractable back pain and microscopic hematuria. Will obtain further imaging including abd/pelvis CT, lumbar CT without contrast, involve Nephrology. Have high suspicion of cancer; other differential includes tumor lysis syndrome, plasma cell disorder. Acute Renal Failure Hyperkalemia Anion gap Metabolic acidosis: Likely due to obstructive uropathy --CT ABD: Mild bilateral hydroureteronephrosis, likely related to bladder dist ention. Associated perinephric and periureteral stranding with possible urothelial thickening. Findings could be correlated with urinalysis. Numerous sclerotic skeletal lesions, several of which are expansile. This is highly suggestive of metastatic disease and metastatic prostate cancer is a primary consideration. Findings could be correlated with PSA level. Multiple mildly enlarged partially calcified abdominal and pelvic lymph nodes. This adenopathy is nonspecific and could reflect allie metastases however calcified allie metastases are uncommon in prostate cancer. A second primary cannot be excluded. Partially treated disease is within the differential as well. --Renal USD: Mild bilateral hydronephrosis again noted. Urothelial thickening within the right renal pelvis/ureter. Urology consultation recommended. -Cr:7.03>4.3>1.74>0.7 --Urine culture negative -Appreciate nephrology input Urology consulted as well Monitor renal function Avoid nephrotoxic agents as able Juliennema discontinued Received IV fluids Renal function remains stable Continue Grimm catheter Needs follow-up with urology on discharge Metastatic disease Pathological L5 fracture Likely prostate primary --MRI Lumbar Spine:Multifocal marrow replacement consistent with metastatic disease. L5 pathologic fracture. Bilateral sacral ala fractures, also likely pathologic. No epidural extension on unenhanced exam. Minimal retropulsion at the superior endplate of L5. This does not result in significant central canal stenosis. No severe central canal or neural foraminal stenosis. Mild multilevel degenerative changes within the lumbar spine. Pathologic retroperitoneal lymphadenopathy, better depicted on CT of May 04, 2023. -- CT abdomen as above --CT chest:Multiple scattered osteoblastic metastatic foci seen throughout the visualized osseous structures of the chest. There is a nondisplaced pathologic fracture at the T1 spinous process. Mild interstitial/interlobular septal thickening, right greater than left. There are few subcentimeter groundglass irregular densities and a few subcentimeter nodular densities within the right lung. This is nonspecific but could be due to mild asymmetric pulmonary edema or an atypical pneumonitis. [address] follow-up recommended to ensure resolution/stability. Aneurysmal dilatation of the ascending thoracic aorta measuring up to 5.4 cm in diameter. --PSA >1420 Appreciate oncology input Appreciate palliative care input to address goals of care Pain control Fall precautions PT/OT as able Appreciate orthopedics input Needs follow-up with oncology on discharge No intervention for L5 fracture given metastatic disease per Ortho Plan for bone biopsy tomorrow N.p.o. after midnight Elevated D-Dimer: Likely due to metastatic disease -- Could not do CTA due to BHAVIN V/Q Scan:Normal nuclear perfusion scan. -Venous Doppler:No evidence of deep venous thrombus within the bilateral lower extremities. Abdominal aortic aneurysm Severe aortic regurgitation CT:Aneurysmal dilatation of the ascending thoracic aorta measuring up to 5.4 cm in diameter --ECHO: Left ventricle is moderately dilated. EF 50-55%. Significant trabeculation of the left ventricular apex extending into the apical septum and apical lateral wall. Aortic valve is bicuspid. Aortic valve is moderately calcified. Severe aortic regurgitation. Moderate valvular aortic stenosis. Moderate to severe mitral regurgitation. Mitral regurgitation jet is eccentric and posteriorly directed. Ascending aorta is severely enlarged, 5.3 cm. Appreciate vascular surgery input Discussed with CT surgeon [facility]. [place] on 05/06/23: Patient would qualify for arctic valve replacement and ascending aortic repair. No urgent need for transfer to tertiary care facility. Recommends to follow-up with CT surgery on discharge Updated patient's family on 05/06/2023 Mild Troponin elevation Likely due to renal insufficiency Less likely ACS Monitor Prediabetes HbA1c 5.7 Monitor Anemia of chronic disease Microscopic hematuria Likely due to metastatic disease Immunofixation, kappa lambda chain workup pending No gross hematuria No other bleeding issues Monitor CBC Severe protein calorie malnutrition Unintentional weight loss Likely secondary to metastatic disease BMI 21 Dietitian consulted Anxiety: Likely situational H/O Mood disorder PRN Ativan ordered Continue Celexa DVT Px: Heparin SQ Code Status: Full code Admission and Anticipated Discharge Date Admission Date: May 04, 2023 Subjective Patient is seen and examined at bedside No new complaints Updated patient's mother at bedside Unable to obtain bone biopsy today Denies any chest pain, dyspnea, nausea, vomiting, abdominal pain Review of Systems Review of Systems: All systems reviewed & are unremarkable except as noted in Subjective Physical Exam Physical Exam: Physical Exam: Vitals signs as noted above General Appearance:Thin, frail, no apparent distress Head: normocephalic, Atraumatic Eyes: normal inspection, EOMI Neck: supple, Trachea midline Respiratory/Chest: Normal breath sounds, CTA, No accessory muscle use Cardiovascular: S1, S2, +murmur Abdomen/GI:Soft, Non tender, Bowel sounds present Extremities/Musculoskeletal:normal inspection, no edema Neurologic/Psych:AAOX3, grossly no focal neurological deficits Skin: normal color, warm Results & Data Results & Data Vital Signs (Past 12 Hours) Vital Signs Temp Pulse Pulse Resp BP Pulse Ox O2 Del Method 05/08/23 15:07 87 05/08/23 14:43 36.7 C 90 18 93/56 L 96 Room Air 05/08/23 10:49 36.7 C 94 H 19 102/60 96 Room Air 05/08/23 07:30 89 05/08/23 07:18 36.9 C 93 H 19 108/55 L 96 Room Air Laboratory Results Short CBC 05/08/23 Range/Units 05:41 WBC 11.00 H (4.8-10.8) K/ul Hgb 10.1 L (14.0-18.0) g/dl Hct 31.6 L (42.0-52.0) % Plt Count 405 H (130-400) K/uL BMP 05/08/23 05:41 Sodium 136 Potassium 4.2 Chloride 102 Carbon Dioxide 26 BUN 12 Creatinine 0.77 Glucose 98 Calcium 8.9
[2023-05-09 08:48] LABS: Free Kappa 25.7 mg/L (3.3-19.4); Free Kappa/Lambda Ratio 1.25 (0.26-1.65); Free Lambda 20.5 mg/L (5.7-26.3)
[2023-05-09] MEDS: fentaNYL citrate PF 100 MCG/2 ML VIAL ONE (10:26)
--- NOTE | 2023-05-09 12:22 | CT Scan Report ---
CT-GUIDED LEFT ILIAC BONE LESION CORE BIOPSY CLINICAL HISTORY: Multiple osseous lesions; suspected prostate cancer. COMPARISON STUDY: Pelvic CT dated 05/04/2023. PROCEDURE: Procedure and risks were explained. Informed consent was obtained. A final timeout was com pleted. The patient was placed prone on the CT exam table. The left gluteal region was prepped and dr aped in sterile fashion. 1% buffered lidocaine was utilized for skin anesthesia. Utilizing CT guidance, an 11-gauge bone biopsy needle was advanced into the left iliac bone lesion. 2 11-gauge bone cores were obtained and given to the pathologist. The needle was removed and Band-Aid applied. The patient tolerated the procedure well. Vital signs will be monitored postprocedure. IMPRESSION: Left iliac bone lesion core biopsy as above. Performed, dictated, and signed by Nigel Gonzales PA-C; to be co-signed by Dr. Keven Bernal. Electronically signed by: Keven Bernal M.D. 05/09/2023 1:03 PM
--- NOTE | 2023-05-09 12:44 | Hospitalist Progress Note ---
Date of Service May 09, 2023 Assessment & Plan (1) Metabolic acidosis: (2) BHAVIN (acute kidney injury): (3) Unintentional weight loss: (4) Cachectic: (5) Lumbar back pain: Plan Mr. Marie is a 57 year old that presented to the ED today from [facility] for management of his left leg pain and weight loss. He has been having left leg pain since Thanksgiving where he fell in a hole at work. He has noticed a 35 pound weight loss and decreased appetite over the past few months. He is uninsured and was recently seen by [facility] for a minimal work up. He has has some radiologic imaging in March 2023; degenerative spondylosis with disc space narrowing at multiple levels; most severe L4-L5 L5-S1. He reports intermittent bladder loss. He has had a decreased appetite that has been worsening over the past few weeks. Leukocytosis 70.76, hyperkalemic 6.9, creatinine 7.03, anion gap 17, alk phos 770 with otherwise normal LFTs, D-dimer 15,000 370, troponin 27.2 increased to 33.8; suspect ischemic demand rather than ACS. Lactate pending. Doesnt have protein gap. Denies tobacco, alcohol, recreational drug use. Patient mother report uterine cancer; sister history NH Lymphoma. He denies fevers, chills, chest pain, palpitations, SOB, does report nausea, (-) vomiting or diarrhea. See Dr. Fernandez addendum for physical examination findings. Patient will be admitted for metabolic acidosis and acute kidney failure with intractable back pain and microscopic hematuria. Will obtain further imaging including abd/pelvis CT, lumbar CT without contrast, involve Nephrology. Have high suspicion of cancer; other differential includes tumor lysis syndrome, plasma cell disorder. Acute Renal Failure Hyperkalemia Anion gap Metabolic acidosis: Likely due to obstructive uropathy --CT ABD: Mild bilateral hydroureteronephrosis, likely related to bladder dist ention. Associated perinephric and periureteral stranding with possible urothelial thickening. Findings could be correlated with urinalysis. Numerous sclerotic skeletal lesions, several of which are expansile. This is highly suggestive of metastatic disease and metastatic prostate cancer is a primary consideration. Findings could be correlated with PSA level. Multiple mildly enlarged partially calcified abdominal and pelvic lymph nodes. This adenopathy is nonspecific and could reflect allie metastases however calcified allie metastases are uncommon in prostate cancer. A second primary cannot be excluded. Partially treated disease is within the differential as well. --Renal USD: Mild bilateral hydronephrosis again noted. Urothelial thickening within the right renal pelvis/ureter. Urology consultation recommended. -Cr:7.03>4.3>1.74>0.7 --Urine culture negative -Appreciate nephrology input Urology consulted as well Monitor renal function Avoid nephrotoxic agents as able Lokelma discontinued Received IV fluids Renal function remains stable Continue Grimm catheter--voiding trial as outpatient Needs follow-up with urology on discharge Metastatic disease Pathological L5 fracture Likely prostate primary --MRI Lumbar Spine:Multifocal marrow replacement consistent with metastatic disease. L5 pathologic fracture. Bilateral sacral ala fractures, also likely pathologic. No epidural extension on unenhanced exam. Minimal retropulsion at the superior endplate of L5. This does not result in significant central canal stenosis. No severe central canal or neural foraminal stenosis. Mild multilevel degenerative changes within the lumbar spine. Pathologic retroperitoneal lymphadenopathy, better depicted on CT of May 04, 2023. -- CT abdomen as above --CT chest:Multiple scattered osteoblastic metastatic foci seen throughout the visualized osseous structures of the chest. There is a nondisplaced pathologic fracture at the T1 spinous process. Mild interstitial/interlobular septal thickening, right greater than left. There are few subcentimeter groundglass irregular densities and a few subcentimeter nodular densities within the right lung. This is nonspecific but could be due to mild asymmetric pulmonary edema or an atypical pneumonitis. [address] follow-up recommended to ensure resolution/stability. Aneurysmal dilatation of the ascending thoracic aorta measuring up to 5.4 cm in diameter. --PSA >1420 Appreciate oncology input Appreciate palliative care input to address goals of care Pain control Fall precautions PT/OT as able Appreciate orthopedics input No intervention for L5 fracture given metastatic disease per Ortho Patient had bone biopsy on 05/09/2023--pathology pending Advised to follow-up with oncology on discharge Elevated D-Dimer: Likely due to metastatic disease -- Could not do CTA due to BHAVIN V/Q Scan:Normal nuclear perfusion scan. -Venous Doppler:No evidence of deep venous thrombus within the bilateral lower extremities. Abdominal aortic aneurysm Severe aortic regurgitation CT:Aneurysmal dilatation of the ascending thoracic aorta measuring up to 5.4 cm in diameter --ECHO: Left ventricle is moderately dilated. EF 50-55%. Significant trabeculation of the left ventricular apex extending into the apical septum and apical lateral wall. Aortic valve is bicuspid. Aortic valve is moderately calcified. Severe aortic regurgitation. Moderate valvular aortic stenosis. Moderate to severe mitral regurgitation. Mitral regurgitation jet is eccentric and posteriorly directed. Ascending aorta is severely enlarged, 5.3 cm. Appreciate vascular surgery input Discussed with CT surgeon [facility] [place] [place] on 05/06/23: Patient would qualify for arctic valve replacement and ascending aortic repair. No urgent need for transfer to tertiary care facility. Recommends to follow-up with CT surgery on discharge Updated patient's family on 05/06/2023 Mild Troponin elevation Likely due to renal insufficiency Less likely ACS Monitor Prediabetes HbA1c 5.7 Monitor Anemia of chronic disease Microscopic hematuria Likely due to metastatic disease Immunofixation, kappa lambda chain workup pending No gross hematuria No other bleeding issues Monitor CBC Severe protein calorie malnutrition Unintentional weight loss Likely secondary to metastatic disease BMI 21 Dietitian consulted Anxiety: Likely situational H/O Mood disorder PRN Ativan ordered Continue Celexa DVT Px: Heparin SQ Code Status: Full code Disposition Home Admission and Anticipated Discharge Date Admission Date: May 04, 2023 Subjective Patient is seen and examined at bedside Had bone biopsy today Offers no complaints today Denies any chest pain, dyspnea, nausea, vomiting, abdominal pain Plan to be discharge home today Review of Systems Review of Systems: All systems reviewed & are unremarkable except as noted in Subjective Physical Exam Physical Exam: Physical Exam: Vitals signs as noted above General Appearance:Thin, frail, no apparent distress Head: normocephalic, Atraumatic Eyes: normal inspection, EOMI Neck: supple, Trachea midline Respiratory/Chest: Normal breath sounds, CTA, No accessory muscle use Cardiovascular: S1, S2, +murmur Abdomen/GI:Soft, Non tender, Bowel sounds present Extremities/Musculoskeletal:normal inspection, no edema Neurologic/Psych:AAOX3, grossly no focal neurological deficits Skin: normal color, warm Results & Data Results & Data Vital Signs (Past 12 Hours) Vital Signs Temp Pulse Pulse Resp BP Pulse Ox O2 Del Method 05/09/23 11:31 36.7 C 87 16 110/48 L 97 Room Air 05/09/23 10:57 36.8 C 86 14 112/53 L 96 Room Air 05/09/23 10:30 36.6 C 91 H 16 105/50 L 97 Room Air 05/09/23 10:02 36.7 C 88 16 108/58 L 98 Room Air 05/09/23 08:27 91 H 05/09/23 07:57 36.6 C 97 H 20 128/73 98 Room Air 05/09/23 02:58 36.5 C 99 H 19 114/52 L 98 Room Air
--- NOTE | 2023-05-09 13:15 | Discharge Summary ---
Date of Service May 09, 2023 Admission HPI Per Admitting Provider Mr. Marie is a 57 year old that presented to the ED today from [facility] for management of his left leg pain and weight loss. He has been having left leg pain since Thanksgiving where he fell in a hole at work. He has noticed a 35 pound weight loss and decreased appetite over the past few months. He is uninsured and was recently seen by [employer] for a minimal work up. He has has some radiologic imaging in March 2023; degenerative spondylosis with disc space narrowing at multiple levels; most severe L4-L5 L5-S1. He reports intermittent bladder loss. He has had a decreased appetite that has been worse georgie over the past few weeks. Leukocytosis 70.76, hyperkalemic 6.9, creatinine 7.03, anion gap 17, alk phos 770 with otherwise normal LFTs, D-dimer 15,000 370, troponin 27.2 increased to 33.8; suspect ischemic demand rather than ACS. Lactate pending. Doesnt have protein gap. Denies tobacco, alcohol, recreational drug use. Patient mother report uterine cancer; sister history [facility] Lymphoma. He denies fevers, chills, chest pain, palpitations, SOB, does report nausea, (-) vomiting or diarrhea. See Dr. Fernandez addendum for physical examination findings. Patient will be admitted for metabolic acidosis and acute kidney failure with intractable back pain and microscopic hematuria. Will obtain further imaging including abd/pelvis CT, lumbar CT without contrast, involve Nephrology. Have high suspicion of cancer; other differential includes tumor lysis syndrome, plasma cell disorder. Admission Exam Per Admitting Provider Neuro: AAOx4, PERRLA, no aphagia, memory changes, CNII-XII grossly intact HEENT: head normocephalic, moist mucus membranes CV: S1/S2, (-) M/G/R, (-) edema, cap refill < 3 seconds Resp: Lungs CTA in all rubio. On RA GI: Abdomen S/NT/ND, Ax4 bowel sounds, (-) CVA tenderness Musculoskeletal: 5/5 B/L UE strength, 5/5 B/L LE strength. No gait disturbance Skin: (-) rashes , (-) erythema. Psych: euthymic mood Principal Diagnosis Metastatic disease Pathological Lumbar fracture Suspected Prostate Cancer Acute kidney injury Hyperkalemia Obstructive uropathy Abdominal aortic aneurysm Severe aortic regurgitation Severe protein calorie malnutrition Discharge Data Allergies Allergy/AdvReac Type Severity Reaction Status Date / Time No Known Allergies Allergy Unverified 05/04/23 14:00 Consultations 05/04/23 14:01 ED Decision to Admit Stat 05/04/23 14:07 Consult Nephrology Routine 05/04/23 16:04 Consult Urology Routine 05/04/23 16:44 Consult Vascular Surgery Routine 05/05/23 08:00 Consult Orthopedic Surgery Routine Consult Palliative Care Routine 05/05/23 10:06 Consult Oncology Routine Procedures Performed Laboratory Results WBC 11.00 K/ul (4.8-10.8) H 05/08/23 05:41 RBC 3.46 M/uL (4.70-6.10) L 05/08/23 05:41 Hgb 10.1 g/dl (14.0-18.0) L 05/08/23 05:41 Hct 31.6 % (42.0-52.0) L 05/08/23 05:41 MCV 91.3 fL (80.0-100.0) 05/08/23 05:41 MCH 29.2 pg (25.0-34.0) 05/08/23 05:41 MCHC 32.0 g/dL (32.0-36.0) 05/08/23 05:41 RDW Std Deviation 45.5 fL (36.4-46.3) 05/08/23 05:41 RDW Coeff of [place] 13.8 % (11.5-14.5) 05/08/23 05:41 Plt Count 405 K/uL (130-400) H 05/08/23 05:41 MPV 8.7 fL (9.4-12.4) L 05/08/23 05:41 Immature Gran % (Auto) 1.2 % 05/04/23 12:25 Neut % (Auto) 87.8 % 05/04/23 12:25 Lymph % (Auto) 4.5 % 05/04/23 12:25 [place] % (Auto) 6.0 % 05/04/23 12:25 Eos % (Auto) 0.1 % 05/04/23 12:25 Baso % (Auto) 0.4 % 05/04/23 12:25 Neut # (Auto) 15.59 K/uL (1.40-6.50) H 05/04/23 12:25 Lymph # (Auto) 0.80 K/uL (1.20-3.40) L 05/04/23 12:25 [place] # (Auto) 1.07 K/uL (0.11-0.59) H 05/04/23 12:25 Eos # (Auto) 0.02 K/uL (0.00-0.50) 05/04/23 12:25 Baso # (Auto) 0.07 K/uL (0.00-0.20) 05/04/23 12:25 Immature Gran # (Auto) 0.21 K/uL (0.01-0.20) H 05/04/23 12:25 PT 11.6 Seconds (9.0-12.0) 05/08/23 06:56 INR 1.1 (0.9-1.1) 05/08/23 06:56 D-Dimer 71788 ug/L FEU (0-500) H* 05/04/23 12:40 VBG pH 7.29 (7.36-7.41) L 05/04/23 15:50 VBG pCO2 27 mmHg (38-50) L 05/04/23 15:50 VBG pO2 37 mmHg 05/04/23 15:50 VBG HCO3 13 mmol/L 05/04/23 15:50 VBG O2 Saturation 68.2 % 05/04/23 15:50 VBG Base Excess -12.3 mEq/L 05/04/23 15:50 Sodium 136 mmol/L (136-145) 05/08/23 05:41 Potassium 4.2 mmol/L (3.5-5.1) 05/08/23 05:41 Chloride 102 mmol/L (98-107) 05/08/23 05:41 Carbon Dioxide 26 mmol/L (21-32) 05/08/23 05:41 Anion Gap 8 (3-11) 05/08/23 05:41 BUN 12 mg/dl (6-23) 05/08/23 05:41 Creatinine 0.77 mg/dl (0.6-1.4) 05/08/23 05:41 Est Cr Clr Drug Dosing 83.7 ml/min 05/08/23 05:41 Est GFR ( Amer) 115.1 ml/min 05/08/23 05:41 Est GFR (Non-Af Amer) 99.3 ml/min 05/08/23 05:41 BUN/Creatinine Ratio 15.6 (10-20) 05/08/23 05:41 Glucose 98 mg/dl (70-99(Fasting)) 05/08/23 05:41 POC Glucose 119 mg/dl (70-99) H 05/06/23 16:13 Estimat Average Glucose 117 mg/dl 05/04/23 15:50 Hemoglobin A1c 5.7 % (4.5-5.6) H 05/04/23 15:50 Lactate 0.8 mmol/L (0.4-2.0) 05/04/23 15:50 Uric Acid 11.6 mg/dl (2.6-7.2) H 05/04/23 12:27 Calcium 8.9 mg/dl (8.6-10.3) 05/08/23 05:41 Phosphorus 2.9 mg/dl (2.5-4.9) D 05/05/23 06:01 Magnesium 1.6 mg/dl (1.7-2.4) L 05/07/23 05:20 Total Bilirubin 0.4 mg/dl (0.2-1.0) 05/05/23 06:01 AST 14 U/L (13-39) 05/05/23 06:01 ALT 6 U/L (7-52) L 05/05/23 06:01 Alkaline Phosphatase 557 U/L (34-104) H 05/05/23 06:01 Troponin I High Sens 33.8 pg/ml (0-20) H 05/04/23 14:17 Total Protein 5.7 gm/dl (6.0-8.3) L D 05/05/23 06:01 Albumin 3.0 gm/dl (3.4-5.0) L 05/05/23 06:01 Globulin 2.7 gm/dl (2.5-4.0) 05/05/23 06:01 Albumin/Globulin Ratio 1.1 (0.9-2) 05/05/23 06:01 Lipase 52 U/L (11-82) 05/04/23 12:25 Prostate Specific Ag > 1420.000 ng/ml (0-4) H 05/04/23 12:27 25-OH Vitamin D Total < 7.0 ng/ml (30-100) L 05/04/23 15:50 Procalcitonin 0.55 ng/ml (0-0.5) H 05/05/23 06:01 TSH 3.503 uIu/ml (0.300-4.500) 05/04/23 12:25 Urine Color Yellow 05/04/23 12:49 Urine Appearance Clear (Clear) 05/04/23 12:49 Urine pH 5.0 (4.5-7.5) 05/04/23 12:49 Ur Specific [place] 1.016 (1.000-1.030) 05/04/23 12:49 Urine Protein Negative (Negative) 05/04/23 12:49 Urine Glucose (UA) Negative (Negative) 05/04/23 12:49 Urine Ketones Trace (Negative) H 05/04/23 12:49 Urine Blood 3+ (Negative) H 05/04/23 12:49 Urine Nitrite Negative (Negative) 05/04/23 12:49 Urine Bilirubin Negative (Negative) 05/04/23 12:49 Urine Urobilinogen Negative (Negative) 05/04/23 12:49 Ur Leukocyte Esterase Trace (Negative) H 05/04/23 12:49 Urine WBC (Auto) 5-10 /hpf (0-5) H 05/04/23 12:49 Urine RBC (Auto) 10-30 /hpf (0-4) H 05/04/23 12:49 U Hyaline Cast (Auto) 0 /lpf (0-5) 05/04/23 12:49 U Epithel Cells (Auto) 5-10 /lpf (0-5) H 05/04/23 12:49 Urine Bacteria (Auto) Negative (Negative) 05/04/23 12:49 Urine Osmolality 389 mOsm/kg (500-800) L 05/04/23 14:41 Serum Immunofixation SEE NOTE 05/04/23 15:50 Free [place] LC, Quant 25.7 mg/L (3.3-19.4) H 05/04/23 15:50 Free Lambda LC, Quant 20.5 mg/L (5.7-26.3) 05/04/23 15:50 Free [place]/Lambda Ratio 1.25 (0.26-1.65) 05/04/23 15:50 Impressions Chest X-Ray 05/04/23 12:43 XR chest 1V portable CLINICAL HISTORY: Cough. COMPARISON STUDY: No previous studies for comparison. FINDINGS: Lung volumes are normal. Lungs are clear. There is no pneumothorax or pleural effusion. Moderate cardiomegaly. Mediastinal contours are normal. There is no evidence for pulmonary edema. IMPRESSION: No acute cardiopulmonary findings. Cardiomegaly. ACT 112: Negative or not required by law. Electronically signed by: Fred Silverio M.D. 05/04/2023 2:09 PM Abdomen/Pelvis CT 05/04/23 13:47 CT OF THE ABDOMEN AND PELVIS WITHOUT CONTRAST CLINICAL HISTORY: Weight loss. Renal failure. COMPARISON STUDY: None. TECHNIQUE: Axial images of the abdomen and pelvis were obtained without IV contr ast. Images were reviewed in the axial, sagittal, and coronal planes. Automated exposure control was utilized for the study. A dose lowering technique was utilized adhering to the principles of ALARA. FINDINGS: Please note that the chest and lumbar spine CTs will be reported separately. No pneumatosis, free air or portal venous gas is present. Evaluation of the abdomen and pelvis is suboptimal on this unenhanced exam. There is mild bilateral hydroureteronephrosis, likely related to bladder distention. There is mild bilateral perinephric and periureteral stranding with possible urothelial thickening of the ureters. A few punctate right renal calculi are present. There are no ureteral calculi. Unenhanced images of the liver, spleen, adrenal glands and pancreas are unremarkable. There are multiple mildly enlarged partially calcified abdominal and pelvic lymph nodes. Index left external iliac lymph node on image 247 of 325 measures 3.6 x 1.6 cm. A right common iliac node on image 1 66 measures 2.3 x 1.5 cm. A left perirectal node measures 1.6 x 1.1 cm. Prostate measures 4.5 cm in transverse dimension. Numerous sclerotic lesions are identified within the visualized skeletal structures. Several of these lesions are expansile. There is mild loss of height of the L5 vertebral body suggestive of a pathologic fracture. IMPRESSION: 1. Mild bilateral hydroureteronephrosis, likely related to bladder distention. Associated perinephric and periureteral stranding with possible urothelial thickening. Findings could be correlated with urinalysis. 2. Numerous sclerotic skeletal lesions, several of which are expansile. This is highly suggestive of metastatic disease and metastatic prostate cancer is a primary consideration. Findings could be correlated with PSA level. 3. Multiple mildly enlarged partially calcified abdominal and pelvic lymph nodes. This adenopathy is nonspecific and could reflect allie metastases however calcified allie metastases are uncommon in prostate cancer. A second primary cannot be excluded. Partially treated disease is within the differential as well. ACT 112: Positive. There are findings on this exam that require communication between the performing entity and the patient following Patient Test Result Information Act ([place] Act 112) guidelines. Electronically signed by: Fred Silverio M.D. 05/04/2023 3:[address] 05/04/23 13:47 CT chest diagnostic wo con CT DOSE: HISTORY: weight loss, renal failure TECHNIQUE: Multiaxial CT images of the chest were performed without contrast. A dose lowering technique was utilized adhering to the principles of ALARA. COMPARISON: None. FINDINGS: Multiple scattered osteoblastic metastatic foci seen throughout the visualized osseous structures of the chest. This is most pronounced within the thoracic and visualized lumbar spine. There is a nondisplaced pathologic fracture at the T1 spinous process. Please refer to the same day abdomen and pe lvis CT for further evaluation of the bilateral hydronephrosis. The thyroid gland is unremarkable. Normal esophagus. The heart is normal in size. Trace pericardial effusion. No pleural effusions. Aortic valve calcifications are noted. The ascending thoracic aorta measures 5.4 cm in diameter. No mediastinal or hilar lymphadenopathy. No pneumothorax. The central airways are patent. Mild interstitial/interlobular septal thickening, right greater than left. There are few subcentimeter groundglass irregular densities and a few subcentimeter nodular densities within the right lung. These subcentimeter nodules measure up to 5 mm on image 108 the right lower lobe. This is nonspecific but could be due to mild asymmetric pulmonary edema or an atypical pneumonitis. IMPRESSION: 1. Multiple scattered osteoblastic metastatic foci seen throughout the visualized osseous structures of the chest. 2. There is a nondisplaced pathologic fracture at the T1 spinous process. 3. Mild interstitial/interlobular septal thickening, right greater than left. There are few subcentimeter groundglass irregular densities and a few subcentimeter nodular densities within the right lung. This is nonspecific but c ould be due to mild asymmetric pulmonary edema or an atypical pneumonitis. [address] follow-up recommended to ensure resolution/stability. 4. Aneurysmal dilatation of the ascending thoracic aorta measuring up to 5.4 cm in diameter. ACT 112: Negative or not required by law. Electronically signed by: Lior Davila M.D. 05/04/2023 3:57 PM Venous Doppler Study 05/04/23 14:20 BILATERAL LOWER EXTREMITY VENOUS DOPPLER CLINICAL HISTORY: Lower extremity erythema. COMPARISON STUDY: No previous studies for comparison. TECHNIQUE: Sonography of the deep venous system of the bilateral lower extremities was performed. Compression and augmentation were evaluated. FINDINGS: The bilateral common femoral, superficial femoral and popliteal veins were compressible. Augmentation was normal. Flow was shown within the deep calf vessels. IMPRESSION: No evidence of deep venous thrombus within the bilateral lower extremities. ACT 112: Negative or not required by law. Electronically signed by: Fred Silverio M.D. 05/05/2023 6:50 AM Renal Ultrasound 05/04/23 14:40 RENAL ULTRASOUND HISTORY: Acute kidney injury. COMPARISON: Abdomen and pelvis CT 05/04/2023. FINDINGS: Right kidney: 10.6 cm. Mild hydronephrosis. Normal corticomedullary differentiation and cortical thickness. Urothelial thickening within the right renal pelvis/ureter. Left kidney: 11.7 cm. Mild hydronephrosis. Normal corticomedullary differentiation and cortical thickness. Bladder: Bladder is decompressed by Grimm catheter. IMPRESSION: 1. Mild bilateral hydronephrosis again noted. 2. Urothelial thickening within the right renal pelvis/ureter. Urology consultation recommended. ACT 112: Negative or not required by law. Electronically signed by: Lior Davila M.D. 05/05/2023 7:[address] 05/04/23 15:05 CT SCAN OF THE LUMBAR SPINE WITHOUT IV CONTRAST CLINICAL HISTORY: Low back pain. COMPARISON STUDY: No priors. TECHNIQUE: CT scan of the lumbar spine is performed from the lower thoracic spine to the sacrum. Images are reviewed in the axial, sagittal, and coronal planes. IV contrast was not administered for this examination. A dose lowering technique was utilized adhering to the principles of ALARA. FINDINGS: The skeletal structures are well mineralized. There is evidence of extensive/diffuse multifocal osteoblastic metastatic disease. This is seen at all lumbar levels and throughout the visualized bony pelvis. There is a mild co mpression deformity of L5 which is likely pathologic. Fragments are retropulsed by up to 5 mm. This does not contribute to significant central canal stenosis. Vertebral body heights is otherwise maintained throughout the lumbar spine. Alignment is preserved. There is straightening of the lumbar lordosis. Anterior and lateral marginal osteophytes are seen throughout. The transverse and spinous processes appear intact. There is no spondylolysis. There is mild multilevel degenerative disc space narrowing, greatest at L3-L4. There is no CT evidence of large disc herniation or high-grade central canal stenosis. Degenerative change and partial fusion is seen in the sacroiliac joints. There is a pathologic fracture of the left sacral ala. There is mild to moderate bilateral hydroureteronephrosis. The ureters are dilated to the level of the markedly distended bladder. There are pathologically enlarged and calcified retroperitoneal and iliac chain lymph nodes. A ocean import representative right iliac chain node on image #68 measures 2.3 x 1.8 cm. The paraspinous soft tissues are normal as imaged. IMPRESSION: 1. Findings are consistent with extensive/diffuse osteoblastic metastatic disease. The appearance is most suggestive of metastatic prostate cancer. Correlate with the oncological history. 2. There is a pathologic compression fracture of L5 with mild loss of height and mildly retropulsed fragments. This does not cause significant central canal stenosis. 3. No additional fracture is seen involving the lumbar spine. 4. There is a pathologic fracture of the left sacral ala. 5. There are pathologically enlarged and calcified retroperitoneal and iliac chain lymph nodes. This likely represents metastatic disease. 6. Markedly distended bladder contributing to [id number] bilateral hydroureteronephrosis. ACT 112: Negative or not required by law. Electronically signed by: Keven Bernal M.D. 05/04/2023 3:47 PM Pulmonary Perfusion Imaging 05/05/23 09:11 NUCLEAR PULMONARY PERFUSION SCAN CLINICAL HISTORY: Hypoxia. Elevated d-dimer. Cancer history. COMPARISON STUDY: Chest x-ray and chest CT dated 05/04/2023. TECHNIQUE: Nuclear perfusion scan of both lungs were obtained following the IV administration of 5.4 mCi of technetium 99m MAA. Images were acquired in the anterior, posterior, and oblique projections. FINDINGS: A chest x-ray performed same day 05/04/2023 shows cardiomegaly. The lungs are clear. Perfusion of both lungs is normal and symmetric. There are no segmental defects to suggest pulmonary embolus. IMPRESSION: Normal nuclear perfusion scan. ACT 112: Negative or not required by law. Electronically signed by: Keven Bernal M.D. 05/05/2023 1:32 PM Lumbar Spine MRI 05/05/23 10:14 MRI OF THE LUMBAR SPINE WITHOUT CONTRAST CLINICAL HISTORY: Left sciatica, L5 compression fracture COMPARISON STUDY: Lumbar spine CT May 04, 2023. TECHNIQUE: Utilizing a 1.5 Vianey magnet and dedicated coil, multiplanar, multiecho imaging of the lumbar spine was performed without IV contrast. FINDINGS: For purposes of numbering on this exam, the L5-S1 disc space is assigned to axial image 27 of 30. Alignment of the lumbar spine is anatomic. Multifocal marrow replacement is identified within the visualized skeletal structures. 30% loss of vertebral body height of L5 is noted with minimal retropulsion at the superior endplate. This does not result in significant central canal stenosis. Bony expansion likely due to underlying metastatic disease within visualized portions of the sacrum is noted. Exam is mildly compromised by motion artifact. Conus terminates at the mid L1 level. Pathologic retroperitoneal lymphadenopathy is better depicted on CT of May 04, 2023. There is a slightly displaced left sacral ala fracture. Nondisplaced right fibular fracture is present. There are no additional fractures. No intracanalicular masses identified on unenhanced ex am. No evidence for epidural extension of tumor. Prominent epidural fat within the lower lumbar and sacral canal is present. L1-2: The central canal or neural foramen are patent. L2-3: The central canal and neural foramen are patent. L3-4: There is mild facet arthrosis. The central canal and neural foramen are patent. L4-5: There is moderate facet arthrosis. Minimal retropulsion at the superior endplate of L5 is present. This does not result in significant central canal stenosis. There is mild left neural foraminal stenosis. The right neural foramen is patent. L5-S1: The central canal and neural foramen are patent. IMPRESSION: 1. Multifocal marrow replacement consistent with metastatic disease. L5 pathologic fracture. Bilateral sacral ala fractures, also likely pathologic. No epidural extension on unenhanced exam. 2. Minimal retropulsion at the superior endplate of L5. This does not result in significant central canal stenosis. No severe central canal or neural foraminal stenosis. 3. Mild multilevel degenerative changes within the lumbar spine. 4. Pathologic retroperitoneal lymphadenopathy, better depicted on CT of May 04, 2023. ACT 112: Negative or not required by law. Electronically signed by: Fred Silverio M.D. 05/05/2023 12:[address] 05/09/23 09:00 CT-GUIDED LEFT ILIAC BONE LESION CORE BIOPSY CLINICAL HISTORY: Multiple osseous lesions; suspected prostate cancer. COMPARISON STUDY: Pelvic CT dated 05/04/2023. PROCEDURE: Procedure and risks were explained. Informed consent was obtained. A final timeout was completed. The patient was placed prone on the CT exam table. The left gluteal region was prepped and draped in sterile fashion. 1% buffered lidocaine was utilized for skin anesthesia. Utilizing CT guidance, an 11-gauge bone biopsy needle was advanced into the left iliac bone lesion. 2 11-gauge bone cores were obtained and given to the pathologist. The needle was removed and Band-Aid applied. The patient tolerated the procedure well. Vital signs will be monitored postprocedure. IMPRESSION: Left iliac bone lesion core biopsy as above. Performed, dictated, and signed by Nigel Gonzales PA-C; to be co-signed by Dr. Keven Bernal. Electronically signed by: Keven Bernal M.D. 05/09/2023 1:03 PM Ordered Studies 05/04/23 13:47 CT chest diagnostic wo con Stat CT stones [CT abd pelvis wo con] Stat 05/04/23 14:20 US venous doppler LE BI Routine 05/04/23 14:40 US Renal Bladder [US renal/blad retro comp] Routine 05/04/23 15:05 CT lumbar spine wo con Stat 05/05/23 10:14 MRI Spine [MR lumbar spine wo con] Urgent 05/09/23 09:[address] IR biopsy bone deep CT Routine Hospital Course (1) Metabolic acidosis: (2) BHAVIN (acute kidney injury): (3) Unintentional weight loss: (4) Cachectic: (5) Lumbar back pain: Plan Mr. Marie is a 57 year old that presented to the ED today from [facility] for management of his left leg pain and weight loss. He has been having left leg pain since Thanksgiving where he fell in a hole at work. He has noticed a 35 pound weight loss and decreased appetite over the past few months. He is uninsured and was recently seen by [employer] for a minimal work up. He has has some radiologic imaging in March 2023; degenerative spondylosis with disc space narrowing at multiple levels; most severe L4-L5 L5-S1. He reports intermittent bladder loss. He has had a decreased appetite that has been worsening over the past few weeks. Leukocytosis 70.76, hyperkalemic 6.9, creatinine 7.03, anion gap 17, alk phos 770 with otherwise normal LFTs, D-dimer 15,000 370, troponin 27.2 increased to 33.8; suspect ischemic demand rather than ACS. Lactate pending. Doesnt have protein gap. Denies tobacco, alcohol, recreational drug use. Patient mother report uterine cancer; sister history [place] Lymphoma. He denies fevers, chills, chest pain, palpitations, SOB, does report nausea, (-) vomiting or diarrhea. See Dr. Fernandez addendum for physical examination findings. Patient will be admitted for metabolic acidosis and acute kidney failure with intractable back pain and microscopic hematuria. Will obtain further imaging including abd/pelvis CT, lumbar CT without contrast, involve Nephrology. Have high suspicion of cancer; other differential includes tumor lysis syndrome, plasma cell disorder. Acute Renal Failure Hyperkalemia Anion gap Metabolic acidosis: Likely due to obstructive uropathy --CT ABD: Mild bilateral hydroureteronephrosis, likely related to bladder distention. Associated perinephric and periureteral stranding with possible urothelial thickening. Findings could be correlated with urinalysis. Numerous sclerotic skeletal lesions, several of which are expansile. This is highly suggestive of metastatic disease and metastatic prostate cancer is a primary consideration. Findings could be correlated with PSA level. Multiple mildly enlarged partially calcified abdominal and pelvic lymph nodes. This adenopathy is nonspecific and could reflect allie metastases however calcified allie metastases are uncommon in prostate cancer. A second primary cannot be excluded. Partially treated disease is within the differential as well. --Renal USD: Mild bilateral hydronephrosis again noted. Urothelial thickening within the right renal pelvis/ureter. Urology consultation recommended. -Cr:7.03>4.3>1.74>0.7 --Urine culture negative -Appreciate nephrology input Urology consulted as well Monitor renal function Avoid nephrotoxic agents as able Lokelma discontinued Received IV fluids Renal function remains stable Continue Grimm catheter--voiding trial as outpatient Needs follow-up with urology on discharge Metastatic disease Pathological L5 fracture Likely prostate primary --MRI Lumbar Spine:Multifocal marrow replacement consistent with metastatic disease. L5 pathologic fracture. Bilateral sacral ala fractures, also likely pathologic. No epidural extension on unenhanced exam. Minimal retropulsion at the superior endplate of L5. This does not result in significant central canal stenosis. No severe central canal or neural foraminal stenosis. Mild multilevel degenerative changes within the lumbar spine. Pathologic retroperitoneal lymphadenopathy, better depicted on CT of May 04, 2023. -- CT abdomen as above --CT chest:Multiple scattered osteoblastic metastatic foci seen throughout the visualized osseous structures of the chest. There is a nondisplaced pathologic fracture at the T1 spinous process. Mild interstitial/interlobular septal thickening, right greater than left. There are few subcentimeter groundglass irregular densities and a few subcentimeter nodular densities within the right lung. This is nonspecific but could be due to mild asymmetric pulmonary edema or an atypical pneumonitis. [address] follow-up recommended to ensure resolution/stability. Aneurysmal dilatation of the ascending thoracic aorta measuring up to 5.4 cm in diameter. --PSA >1420 Appreciate oncology input Appreciate palliative care input to address goals of care Pain control Fall precautions PT/OT as able Appreciate orthopedics input No intervention for L5 fracture given metastatic disease per Ortho Patient had bone biopsy on 05/09/2023--pathology pending Advised to follow-up with oncology on discharge Elevated D-Dimer: Likely due to metastatic disease -- Could not do CTA due to BHAVIN V/Q Scan:Normal nuclear perfusion scan. -Venous Doppler:No evidence of deep venous thrombus within the bilateral lower extremities. Abdominal aortic aneurysm Severe aortic regurgitation CT:Aneurysmal dilatation of the ascending thoracic aorta measuring up to 5.4 cm in diameter --ECHO: Left ventricle is moderately dilated. EF 50-55%. Significant trabeculation of the left ventricular apex extending into the apical septum and apical lateral wall. Aortic valve is bicuspid. Aortic valve is moderately calcified. Severe aortic regurgitation. Moderate valvular aortic stenosis. Moderate to severe mitral regurgitation. Mitral regurgitation jet is eccentric and posteriorly directed. Ascending aorta is severely enlarged, 5.3 cm. Appreciate vascular surgery input Discussed with CT surgeon [facility]. Segundo on 05/06/23: Patient would qualify for arctic valve replacement and ascending aortic repair. No urgent need for transfer to tertiary care facility. Recommends to follow-up with CT surgery on discharge Updated patient's family on 05/06/2023 Mild Troponin elevation Likely due to renal insufficiency Less likely ACS Monitor Prediabetes HbA1c 5.7 Monitor Anemia of chronic disease Microscopic hematuria Likely due to metastatic disease Immunofixation, kappa lambda chain workup pending No gross hematuria No other bleeding issues Monitor CBC Severe protein calorie malnutrition Unintentional weight loss Likely secondary to metastatic disease BMI 21 Dietitian consulted Anxiety: Likely situational H/O Mood disorder PRN Ativan ordered Continue Celexa DVT Px: Heparin SQ Code Status: Full code Disposition Home Total Time Total Time Spent Total Time Spent (In Minutes): 59 minutes Discharge Plan Discharge Items Patient Disposition: Home - Self-Care Reason For Visit: BHAVIN Discharge Diagnosis: Metastatic disease Pathological Lumbar fracture Suspected Prostate Cancer Acute kidney injury Hyperkalemia Obstructive uropathy Abdominal aortic aneurysm Severe aortic regurgitation Severe protein calorie malnutrition Activity: Per Instructions section Exercise/Sports: Wait until after follow-up appointment Non-emergency contact: Primary Care Provider, Surgeon, Oncologist and Urologist Call non-emergency contact if: you have any medication questions, your symptoms worsen, your pain is concerning for you and you have a fever Follow-up/Referrals: PCP,NO [Primary Care Provider] - Diet: Regular Addtl Attending Provider Instructions: Follow-up with the primary care physician in 1 week at [facility] as recommended Follow-up with your oncologist Dr.Abhishek Vargas in 2 weeks for further management of your cancer Follow-up with your portfolio lead [facility] for further evaluation of aortic valve, abdominal aortic aneurysm as advised Follow-up with your urologist Dr. Waterman for voiding trial as outpatient -- Your pathology results are pending at the time of discharge. Follow-up with the physician for results. -- Continue Grimm catheter for now. Follow-up with your urologist for further recommendations as outpatient Seek immediate medical attention if your symptoms reoccur or worsen Please take all medications as instructed on discharge list below. Please call if you have any questions or problems. You can reach a [facility] hospitalist on duty at [facility] 24 hours a day by calling [phone] Pending Studies at Discharge: Yes Studies:: Pathology Stand-Alone Forms: My [facility] [employer], Smoking Cessation Medications and DC Order Prescriptions: New citalopram 20 mg Tablet 10 mg PO QAM PRN (Reason: Pain) Qty: 30 0RF diclofenac sodium [Voltaren Arthritis Pain] 1 % Gel 2 g EXT BID Qty: 100 0RF polyethylene glycol 3350 [Miralax] 17 gram Powder In Packet 17 g PO DAILY PRN (Reason: constipation) Qty: 30 0RF oxycodone-acetaminophen [Percocet] 5-325 mg Tablet 1 tab PO Q8H PRN (Reason: pain) Qty: 10 0RF Mag 64 64 mg Tablet,Delayed Release (Dr/Ec) 64 mg PO BID Qty: 30 0RF melatonin 3 mg Tablet 3 mg PO HS PRN (Reason: sleep) Qty: 30 0RF Discontinued acetaminophen [Tylenol Ex Str Rapid Release] 500 mg Tablet 500 mg PO Q6H PRN (Reason: Pain (Scale Score 1-3)) Discharge Orders: Discharge Order (Routine); Ordered 05/09/23 Ordered By: Lamin Barrett Admission Data Admit Date/Time: 05/04/23 14:07 Attending Provider: Lamin Barrett Admit Provider: Deanna Fernandez Primary Care Provider: PCP,NO Other Providers: Deanna Fernandez; Joe Kumar; John Slaughter; Priscilla Fleming; Rosas Coe; Keven Amaral; Kenia Melissa; Paris Garcia; Maged Vargas; Dominique Hutchinson; Constantin Savage; Garrison Hendrix; Neftali Sheridan; Savannah May; zCCP,No Attending
== END 2023-05-09 15:41 | disposition home or self-care (01) | DRG 673 ==
LOC: ED 12:05 → 2S 14:07 → SUATTDRO 14:07 → 2S 17:00